=== PATIENT | female | born 1995 | race African-American/Black ===

== ENCOUNTER 2017-02-16 16:52 | Emergency (ER) | payer SELFPAY ==
--- NOTE | 2017-02-16 18:02 | ER Document Report ---
ED Medical Screen (RME) - General Chief Complaint: Chest Pain Stated Complaint: CHEST PAIN Time seen by provider: 18:01 Mode of Arrival: Ambulatory Information source: Patient TRAVEL OUTSIDE OF THE [place] IN LAST 30 DAYS: No - HPI Patient complains to provider of: chest pain Onset: This afternoon Onset/Duration: Sudden Quality of pain: Achy Severity: Moderate Pain Level: 3 Associated Symptoms: Chest pain Exacerbated by: Deep breathing Relieved by: Denies Similar symptoms previously: No Recently seen / treated by doctor: No Notes: 02/16/17 18:01 Patient is a 21-year-old female with no past medical history presenting to the emergency room complaining of left-sided chest pain that started around 2:30 this afternoon while sitting in her car, she reports a history of intermittent similar pain in the past that she's never sought medical attention for, pain is worse when she takes a deep breath, although she does not feel short of breath, she denies being a smoker, does not take control, no recent long distance travel or periods of immobilization and denies - Related Data Allergies/Adverse Reactions: No Known Allergies Allergy (Verified 02/16/17 17:09) Home Medications: Current Home Medications No Home Medications 02/16/17 [History] Past Medical History - Past Medical History Cardiac Medical History: Reports: Hx Hypertension Denies: Hx Coronary Artery Disease Renal/ Medical History: Denies: Hx Peritoneal Dialysis - Immunizations Immunizations up to date: No Hx Diphtheria, Pertussis, Tetanus Vaccination: No Physical Exam - Vital signs Vitals: Temp Pulse Resp BP Pulse Ox 98.5 F 92 16 144/81 H 100 02/16/17 17:09 02/16/17 17:09 02/16/17 17:09 02/16/17 17:09 02/16/17 17:09 Course - Vital Signs Vital signs: Temp Pulse Resp BP Pulse Ox 98.5 F 92 16 144/81 H 100 02/16/17 17:09 02/16/17 17:09 02/16/17 17:09 02/16/17 17:09 02/16/17 17:09
[2017-02-16 18:34] LABS: ABSOLUTE EOSINOPHILS # (AUTO) 0.1 10^3/uL (0.0-0.6); ABSOLUTE LYMPHOCYTES (AUTO) 2.7 10^3/uL (0.5-4.7); ABSOLUTE MONOCYTES (AUTO) 0.8 10^3/uL (0.1-1.4); ABSOLUTE NEUT (AUTO) 5.6 10^3/uL (1.7-8.2); BASOPHILS % (AUTO) 0.5 % (0-2); EOSINOPHILS % (AUTO) 1.3 % (0-6); HEMOGLOBIN 11.3 g/dL (12.0-15.5); HGB HCT DIFFERENCE -1.1; LYMPHOCYTES % (AUTO) 29.3 % (13-45); MEAN CORPUSCULAR HEMOGLOBIN 23.4 pg (27.0-33.4); MEAN CORPUSCULAR HGB CONC 32.2 g/dL (32.0-36.0); MEAN CORPUSCULAR VOLUME 73 fl (80-97); MONOCYTES % (AUTO) 8.3 % (3-13); RED BLOOD COUNT 4.81 10^6/uL (3.72-5.28); RED CELL DISTRIBUTION WIDTH 15.3 % (11.5-14.0); SEGMENTED NEUTROPHILS % (AUTO) 60.6 % (42-78); WHITE BLOOD COUNT 9.3 10^3/uL (4.0-10.5)
[2017-02-16 18:36] LABS: APPEARANCE,URINE SLIGHTLY-CLOUDY; BILIRUBIN,URINE NEGATIVE (NEGATIVE); GLUCOSE, URINE NEGATIVE (NEGATIVE); KETONES,URINE NEGATIVE (NEGATIVE); LEUKOCYTE ESTERASE,URINE NEGATIVE (NEGATIVE); NITRITE,URINE NEGATIVE (NEGATIVE); PROTEIN,URINE NEGATIVE (NEGATIVE); URINE SPECIFIC GRAVITY 1.027; UROBILINOGEN,URINE NEGATIVE mg/dL (<2.0)
[2017-02-16 18:59] LABS: ALANINE AMINOTRANSFERASE 24 U/L (9-52); ALBUMIN 3.9 g/dL (3.5-5.0); ALKALINE PHOSPHATASE 63 U/L (38-126); ANION GAP 12 (5-19); ASPARTATE AMINO TRANSFERASE 12 U/L (14-36); BILIRUBIN,DIRECT 0.1 mg/dL (0.0-0.4); BILIRUBIN,TOTAL 0.2 mg/dL (0.2-1.3); BLOOD UREA NITROGEN 8 mg/dL (7-20); CALCIUM 9.6 mg/dL (8.4-10.2); CARBON DIOXIDE 28 mmol/L (22-30); CHLORIDE 101 mmol/L (98-107); CREATINE KINASE 70 U/L (30-135); CREATININE RESULT 0.69 mg/dL (0.52-1.25); GLUCOSE 97 mg/dL (75-110); SODIUM 141.3 mmol/L (137-145); TOTAL PROTEIN 7.4 g/dL (6.3-8.2)
--- NOTE | 2017-02-16 19:03 | EKG REPORT ---
SEVERITY:- BORDERLINE ECG - SINUS RHYTHM BORDERLINE T ABNORMALITIES, INFERIOR LEADS : Confirmed by: Irvin Gould MD 16-Feb-2017 19:01:58
[2017-02-16 19:12] LABS: CREATINE KINASE MB < 0.22 ng/mL (<4.55); TROPONIN I < 0.012 ng/mL
--- NOTE | 2017-02-16 19:28 | ER Document Report ---
ED General - General Chief Complaint: Chest Pain Stated Complaint: CHEST PAIN Time seen by provider: 19:26 Mode of Arrival: Ambulatory Notes: Patient is a 21-year-old female that comes emergency department for chief complaint of pain in the mid left side of her chest that radiates around to her left armpit, symptoms started about 1431 she was sitting in a car she started to notice it, she states she can feel intermittently, she states she has had this on and off for a few months. Pain is worse with taking a deep breath or changing from lying to sitting where she can feel a sharp pain. She denies shortness of breath, cough, injury. She denies any recent travel, surgery, lower extremity swelling, she denies smoking, she denies oral contraceptive or any medications. She denies any medical history otherwise. She states she is somewhat stressed because she is finishing a certification program and is not sleeping well. TRAVEL OUTSIDE OF THE [place] IN LAST 30 DAYS: No - Related Data Allergies/Adverse Reactions: No Known Allergies Allergy (Verified 02/16/17 17:09) Past Medical History - General Information source: Patient - Social History Smoking Status: Never Smoker Chew tobacco use (# tins/day): No Frequency of alcohol use: Rare Drug Abuse: None Lives with: Family Family History: DM, Hypertension, Malignancy. denies: Thyroid Disfunction Patient has suicidal ideation: No Patient has homicidal ideation: No - Past Medical History Cardiac Medical History: Reports: Hx Hypertension Denies: Hx Coronary Artery Disease Renal/ Medical History: Denies: Hx Peritoneal Dialysis Surgical Hx: Negative - Immunizations Immunizations up to date: No Hx Diphtheria, Pertussis, Tetanus Vaccination: No Review of Systems - Review of Systems Constitutional: No symptoms reported EENT: No symptoms reported Cardiovascular: See HPI Respiratory: See HPI Gastrointestinal: No symptoms reported Genitourinary: No symptoms reported Female Genitourinary: No symptoms reported Musculoskeletal: See HPI Skin: No symptoms reported Hematologic/Lymphatic: No symptoms reported Neurological/Psychological: No symptoms reported Physical Exam - Vital signs Vitals: Temp Pulse Resp BP Pulse Ox 98.5 F 92 16 144/81 H 100 02/16/17 17:09 02/16/17 17:09 02/16/17 17:09 02/16/17 17:09 02/16/17 17:09 Interpretation: Normal - General General appearance: Appears well In distress: None - HEENT Head: Normocephalic, Atraumatic Eyes: Normal Conjunctiva: Normal Extraocular movements intact: Yes Eyelashes: Normal Pupils: PERRL Nasal: Normal Mouth/Lips: Normal Mucous membranes: Normal Pharynx: Normal Neck: Normal - Respiratory Respiratory status: No respiratory distress Chest status: Tender - There is tenderness in the left anterior upper chest wall at approximately rib 2-3 which is reproducible, otherwise completely unremarkable examination Breath sounds: Normal. No: Decreased air movement Chest palpation: Normal - Cardiovascular Rhythm: Regular Heart sounds: Normal auscultation Murmur: No - Abdominal Inspection: Normal Distension: No distension Bowel sounds: Normal Tenderness: Nontender. No: Tender, Guarding Organomegaly: No organomegaly - Back Back: Normal, Nontender. No: Tender - Extremities General upper extremity: Normal inspection, Nontender, Normal color, Normal ROM , Normal temperature General lower extremity: Normal inspection, Nontender, Normal color, Normal ROM , Normal temperature, Normal weight bearing. No: Simón's sign - Neurological Neuro grossly intact: Yes Cognition: Normal Orientation: AAOx4 [place] Coma Scale Eye Opening: Spontaneous [place] Coma Scale Verbal: Oriented [place] Coma Scale Motor: Obeys Commands [place] Coma Scale Total: 15 Speech: Normal Motor strength normal: LUE, RUE, LLE, RLE Sensory: Normal - Psychological Associated symptoms: Normal affect, Normal mood - Skin Skin Temperature: Warm Skin Moisture: Dry Skin Color: Normal Course - Re-evaluation Re-evalutation: On examination patient is resting notably, smiling, conversational, she winces when she gets up from a lying position to a sitting position, she has a palpable tenderness over the left upper chest wall, she also complains of feeling tenderness when taking a deep breath. Otherwise she denies shortness of breath, pain. Patient states that actually at the moment she does not feel any symptoms unless she moves them that way or takes a deep breath. EKG compared to prior, has slight T-wave inversion in lead 2 inferiorly but no consecutive changes, no acute ischemic abnormalities, no other abnormalities noted. Chest x-ray unremarkable including no pneumothorax, effusion, or other abnormalities. CBC, chemistry, cardiac enzymes reviewed and are unremarkable. Patient is young and has no risk factors for either ACS or pulmonary embolism. Suspect chest wall pain versus pleurisy based on examination and symptoms. Treating with anti-inflammatory. Patient declines any medications at this time , requests prescription which was provided. She requests a work note, states she is ready to leave. Discussed follow-up with primary care, discussed return precautions in detail, patient states understanding and agreement. - Vital Signs Vital signs: Temp Pulse Resp BP Pulse Ox 98.5 F 78 18 133/67 H 100 02/16/17 17:09 02/16/17 19:00 02/16/17 19:00 02/16/17 19:00 02/16/17 17:09 - Laboratory Result Diagrams: 02/16/17 18:05 02/16/17 18:05 Laboratory results interpreted by me: 02/16/17 02/16/17 18:05 18:05 Hgb 11.3 L Hct 35.0 L MCV 73 L MCH 23.4 L RDW 15.3 H Plt Count 547 H AST 12 L Discharge - Discharge Clinical Impression: Chest pain Qualifiers: Chest pain type: unspecified Qualified Code(s): R07.9 - Chest pain, unspecified Condition: Stable Disposition: HOME, SELF-CARE Additional Instructions: Your workup does not show any acute abnormalities or concerning findings. Examination symptoms are suggestive of pleurisy, take the naproxen anti- inflammatory as prescribed, drink plenty of fluids and rest. Follow-up with primary care for additional management. Return to emergency department for any concerning symptoms, see additional details listed below. Pleurisy Your chest pain has been diagnosed as pleuritis (pleurisy). This is an inflammation of the surface of the lung tissue. It can be caused by a virus or , occasionally, old scar tissue. It is painful but, for the most part, not a serious problem. This pain is usually made worse by deep breathing, coughing, or sudden movements of the upper body or arms. The treatment is relief of symptoms. It includes rest, antiinflammatory medication, and pain medicine. Resolution of the pain is usually rapid once antiinflammatory medication is started. Warning signs of a more serious problem include: a fever, shortness of breath, pain that radiates to your jaw, shoulders or arms, or coughing up bloody sputum. If any of these symptoms occur, call the physician at once. Prescriptions: Naproxen 500 mg PO BID #20 tablet Forms: Return to Work Referrals: RONA ROCHA MD [Primary Care Provider] - Follow up as needed
[2017-02-16 21:01] VITALS: BP 136/74
== END 2017-02-16 21:00 | disposition home or self-care (01) ==
LOC: ER 16:52
DX: R07.9 Chest pain, unspecified (principal); I10 Essential (primary) hypertension
CPT/HCPCS: 36415; 71020; 80053; 81001; 82550; 82553; 84484; 84703; 85025; 93005; 93010; 99285

== ENCOUNTER 2017-04-03 07:21 | Emergency (ER) | payer OTHER ==
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
[2017-04-03 09:04] LABS: ABSOLUTE BASOPHILS # (AUTO) 0.1 10^3/uL (0.0-0.2); ABSOLUTE EOSINOPHILS # (AUTO) 0.1 10^3/uL (0.0-0.6); ABSOLUTE MONOCYTES (AUTO) 0.6 10^3/uL (0.1-1.4); ABSOLUTE NEUT (AUTO) 5.2 10^3/uL (1.7-8.2); BASOPHILS % (AUTO) 0.6 % (0-2); EOSINOPHILS % (AUTO) 1.7 % (0-6); HEMATOCRIT 35.5 % (36.0-47.0); HEMOGLOBIN 10.9 g/dL (12.0-15.5); HGB HCT DIFFERENCE -2.8; LYMPHOCYTES % (AUTO) 25.5 % (13-45); MEAN CORPUSCULAR HEMOGLOBIN 22.9 pg (27.0-33.4); MEAN CORPUSCULAR HGB CONC 30.8 g/dL (32.0-36.0); MEAN CORPUSCULAR VOLUME 74 fl (80-97); RED BLOOD COUNT 4.78 10^6/uL (3.72-5.28); RED CELL DISTRIBUTION WIDTH 15.3 % (11.5-14.0); SEGMENTED NEUTROPHILS % (AUTO) 65.2 % (42-78)
[2017-04-03 09:22] LABS: ALANINE AMINOTRANSFERASE 20 U/L (9-52); ALBUMIN 3.9 g/dL (3.5-5.0); ALKALINE PHOSPHATASE 67 U/L (38-126); ANION GAP 10 (5-19); ASPARTATE AMINO TRANSFERASE 11 U/L (14-36); BILIRUBIN,DIRECT 0.3 mg/dL (0.0-0.4); BILIRUBIN,TOTAL 0.4 mg/dL (0.2-1.3); BLOOD UREA NITROGEN 7 mg/dL (7-20); CALCIUM 9.2 mg/dL (8.4-10.2); CARBON DIOXIDE 26 mmol/L (22-30); CHLORIDE 104 mmol/L (98-107); CREATININE RESULT 0.62 mg/dL (0.52-1.25); GLUCOSE 90 mg/dL (75-110); POTASSIUM 4.2 mmol/L (3.6-5.0); TOTAL PROTEIN 7.6 g/dL (6.3-8.2)
[2017-04-03] MEDS ORDERED: ACETAMINOPHEN 325 MG TABLET PO ONE (09:40)
[2017-04-03] MEDS ORDERED: FAMOTIDINE 20 MG TABLET PO ONE (09:40)
[2017-04-03] MEDS ORDERED: IBUPROFEN 800 MG TABLET PO ONE (09:40)
[2017-04-03] MEDS ORDERED: LANSOPRAZOLE 30 MG TAB.RAP.DR PO ONE (09:40)
[2017-04-03 09:49] LABS: APPEARANCE,URINE SLIGHTLY-CLOUDY; BILIRUBIN,URINE NEGATIVE (NEGATIVE); GLUCOSE, URINE NEGATIVE (NEGATIVE); KETONES,URINE NEGATIVE (NEGATIVE); LEUKOCYTE ESTERASE,URINE NEGATIVE (NEGATIVE); NITRITE,URINE NEGATIVE (NEGATIVE); PROTEIN,URINE 100 mg/dL (NEGATIVE); URINE SPECIFIC GRAVITY 1.028; UROBILINOGEN,URINE NEGATIVE mg/dL (<2.0)
[2017-04-03 10:59] VITALS: BP 147/82
== END 2017-04-03 10:58 | disposition home or self-care (01) ==
LOC: ER 07:21
DX: K29.00 Acute gastritis without bleeding (principal); R10.13 Epigastric pain; R10.2 Pelvic and perineal pain; M54.5 Low back pain; G89.29 Other chronic pain; V49.9XXS Car occupant (driver) (passenger) injured in unspecified traffic accident, sequela; I10 Essential (primary) hypertension
CPT/HCPCS: 36415; 80053; 81001; 84703; 85025; 87086; 87088; 87186; 99284

== ENCOUNTER 2017-04-12 22:13 | Emergency (ER) | payer OTHER ==
[2017-04-12 23:38] VITALS: BP 138/88
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
== END 2017-04-13 00:11 | disposition home or self-care (01) ==
LOC: ER 22:13
DX: M54.6 Pain in thoracic spine (principal); R51 Headache; V89.2XXA Person injured in unspecified motor-vehicle accident, traffic, initial encounter; I10 Essential (primary) hypertension
CPT/HCPCS: 99283

== ENCOUNTER 2017-04-18 01:33 | Emergency (ER) | payer OTHER ==
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
[2017-04-18] MEDS ORDERED: KETOROLAC TROMETHAMINE 60 MG/2 ML SDV IM ONE (07:00)
[2017-04-18] MEDS ORDERED: DEXAMETHASONE SOD PHOS INJ 10 MG/1 ML VIAL IM ONE (07:00)
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
[2017-04-18 07:14] VITALS: BP 156/64
== END 2017-04-18 07:11 | disposition home or self-care (01) ==
LOC: ER 01:33
DX: M54.5 Low back pain (principal); M79.1 Myalgia; V89.2XXA Person injured in unspecified motor-vehicle accident, traffic, initial encounter; I10 Essential (primary) hypertension
CPT/HCPCS: 72050; 72110; 99283

== ENCOUNTER 2017-05-10 18:29 | Emergency (ER) | payer OTHER ==
[2017-05-10] MEDS ORDERED: ONDANSETRON 4 MG TAB.RAPDIS PO ONE (19:38)
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
[2017-05-10 19:57] VITALS: BP 130/83
== END 2017-05-10 19:57 | disposition home or self-care (01) ==
LOC: ER 18:29
DX: J04.0 Acute laryngitis (principal); R05 Cough; R11.2 Nausea with vomiting, unspecified; R19.7 Diarrhea, unspecified
CPT/HCPCS: 99283; S0119

== ENCOUNTER 2017-07-02 08:07 | Emergency (ER) | payer SELFPAY ==
[2017-07-02 08:18] VITALS: BP 173/86
--- NOTE | 2017-07-02 09:33 | ER Document Report ---
HPI - HPI Pain Level: 4 Notes: Patient is a 21-year-old female who presents the ED complaining of loss of voice , nasal congestion/discharge, and an occasional cough 1-2 days. Patient states that she talks on the phones and is in need of a work note. She still eating and drinking without any difficulties. She has not been using any over- the-counter meds for symptoms. Her conditions have not been worsening. Patient states that she has no pain. She denies any smoking or illicit drug use. Denies any past medical history. Denies any drug allergies. Denies any headache, fever, neck pain, sore throat, chest pain, palpitations, syncope, shortness of breath, wheeze, dyspnea, abdominal pain, nausea/vomiting/diarrhea, urinary retention, dysuria, hematuria, or rash. - ROS Notes: REVIEW OF SYSTEMS: CONSTITUTIONAL : Denies fever, chills, or sweats. Denies recent illness. EENT: see hpi. no eye complaints CARDIOVASCULAR: Denies chest pain. Denies palpitations or racing or irregular heart beat. Denies ankle edema. RESPIRATORY: see hpi. Denies shortness of breath, difficulty breathing, or wheezing. GASTROINTESTINAL: Denies abdominal pain or distention. Denies nausea, vomiting , or diarrhea. Denies blood in vomitus, stools, or per rectum. Denies black, tarry stools. Denies constipation. GENITOURINARY: Denies difficulty urinating, painful urination, burning, frequency, blood in urine, or discharge. MUSCULOSKELETAL: Denies back or neck pain or stiffness. Denies joint pain or swelling. SKIN: Denies rash, lesions or sores. NEUROLOGICAL: Denies confusion or altered mental status. Denies passing out or loss of consciousness. Denies dizziness or lightheadedness. Denies headache. Denies weakness or paralysis or loss of use of either side. Denies problems with gait or speech. Denies sensory loss, numbness, or tingling. ALL OTHER SYSTEMS REVIEWED AND NEGATIVE. Dictation was performed using [employer] voice recognition software - REPRODUCTIVE LMP: 06-07-17 Reproductive: DENIES: : - DERM Skin Color: Normal Past Medical History - Social History Smoking Status: Never Smoker Family History: DM, Hypertension, Malignancy Patient has suicidal ideation: No Patient has homicidal ideation: No - Past Medical History Cardiac Medical History: Reports: Hx Hypertension Renal/ Medical History: Denies: Hx Peritoneal Dialysis - Immunizations Immunizations up to date: No Hx Diphtheria, Pertussis, Tetanus Vaccination: No Vertical Provider Document - CONSTITUTIONAL Agree With Documented VS: Yes Notes: PHYSICAL EXAMINATION: GENERAL: Well-appearing, well-nourished and in no acute distress. HEAD: Atraumatic, normocephalic. EYES: Pupils equal round and reactive to light, extraocular movements intact, sclera anicteric, conjunctiva are normal. ENT: EAC clear b/l. TM's intact b/l without erythema, fluid, or perforation. Nares patent and without discharge. oropharynx clear without exudates. No tonsilar hypertrophy or erythema. Moist mucous membranes. No sinus tenderness. No palatine shift. uvula midline. No tongue protrusion. No facial swelling. NECK: Normal range of motion, supple without lymphadenopathy. No rigidity/ meningismus. LUNGS: Breath sounds clear to auscultation bilaterally and equal. No wheezes rales or rhonchi. HEART: Regular rate and rhythm without murmurs, rubs, gallops. Extremities: No cyanosis, clubbing, or edema b/l. Peripheral pulses 2+. Capillary refill less than 3 seconds. NEUROLOGICAL: Cranial nerves grossly intact. Normal speech, normal gait. Normal sensory, motor exams PSYCH: Normal mood, normal affect. SKIN: Warm, Dry, normal turgor, no rashes or lesions noted. - INFECTION CONTROL TRAVEL OUTSIDE OF THE [place] IN LAST 30 DAYS: No - RESPIRATORY O2 Sat by Pulse Oximetry: 99 Course - Re-evaluation Re-evalutation: 07/02/17 09:34 Patient is an afebrile, well-hydrated, 21-year-old female who presents to the ED with an acute URI/laryngitis, suspect viral at this time. Vitals are stable. PE otherwise unremarkable. Low suspicion for any meningitis, sepsis, peritonsillar/pharyngeal abscess, respiratory compromise, Kenji's, or other emergent systemic condition at this time. Patient is aware this condition can change from initial presentation and she needs to monitor symptoms closely. I will send her home with a Rx for prednisone taper. Conservative measures otherwise for symptoms. Recheck with your PCM this week. Work note provided. Return to the ED with any worsening/concerning symptoms otherwise as reviewed in discharge. Patient is in agreement. - Vital Signs Vital signs: Temp Pulse Resp BP Pulse Ox 99 F 106 H 16 173/86 H 99 07/02/17 08:12 07/02/17 08:12 07/02/17 08:12 07/02/17 08:12 07/02/17 08:12 Discharge - Discharge Clinical Impression: Laryngitis URI (upper respiratory infection) Qualifiers: URI type: unspecified URI Qualified Code(s): J06.9 - Acute upper respiratory infection, unspecified Condition: Stable Disposition: HOME, SELF-CARE Instructions: Corticosteroid Medication ([facility]), Laryngitis ([facility]), Upper Respiratory Illness ([facility]), Viral Syndrome ([facility]) Additional Instructions: Maintain adequate fluid intake Take meds as directed tylenol/ibuprofen as needed over the counter cold medication as needed for symptoms Humidified air may help F/u: with your PCM in 2-3 days for a recheck Return to the ED with any fever, worsening pain, chest pain, palpitations, syncope, worsening CLARK, neck pain/stiffness, shortness of breath, wheezing, drooling, trouble swallowing/breathing, abdominal pain, n/v/d, rash, or worsening/concerning symptoms otherwise. Prescriptions: Prednisone [Deltasone 10 mg Tablet] 10 mg PO ASDIR PRN #21 tablet PRN Reason: Forms: Elevated Blood Pressure, Return to Work Referrals: [facility] [Provider Group] - Follow up as needed [facility] [Provider Group] - Follow up as needed
== END 2017-07-02 09:47 | disposition home or self-care (01) ==
LOC: ER 08:07
DX: J04.0 Acute laryngitis (principal); J06.9 Acute upper respiratory infection, unspecified; I10 Essential (primary) hypertension
CPT/HCPCS: 99283

== ENCOUNTER 2018-01-03 00:35 | Emergency (ER) | payer MEDICAID, OTHER ==
[2018-01-03] MEDS ORDERED: NORMAL SALINE 1000 ML 1,000 ML IV PRN (03:02)
[2018-01-03] MEDS ORDERED: KETOROLAC TROMETHAMINE INJ/PF 30 MG/1 ML SDV IV ONE (03:02)
--- NOTE | 2018-01-03 03:02 | ER Document Report ---
ED General - General Chief Complaint: Shortness Of Breath Stated Complaint: TROUBLE BREATHING Time Seen by Provider: 01/03/18 02:26 Notes: Patient is a 22-year-old female who presents emergency department complaining of body aches. Patient states that she was in [place] on Tuesday and diagnosed with pneumonia and sent home on Levaquin. Patient states that she saw Dr. Rocha her primary care doctor on Tuesday and told to continue taking Levaquin. Patient states she comes today with complaint of body aches. She otherwise denies any shortness of breath, dyspnea on exertion, chest pain, nausea or vomiting. Patient did have a recent negative test. Otherwise healthy female. Denies any fevers or chills. TRAVEL OUTSIDE OF THE [place] IN LAST 30 DAYS: No - Related Data Allergies/Adverse Reactions: No Known Allergies Allergy (Verified 07/02/17 08:18) Past Medical History - Social History Smoking Status: Never Smoker Family History: DM, Hypertension, Malignancy Patient has suicidal ideation: No Patient has homicidal ideation: No - Past Medical History Cardiac Medical History: Reports: Hx Hypertension Renal/ Medical History: Denies: Hx Peritoneal Dialysis - Immunizations Immunizations up to date: No Hx Diphtheria, Pertussis, Tetanus Vaccination: No Review of Systems - Review of Systems Constitutional: No symptoms reported, Weakness. denies: Chills, Fever EENT: No symptoms reported Cardiovascular: No symptoms reported Respiratory: See HPI Gastrointestinal: No symptoms reported Musculoskeletal: See HPI -: Yes All other systems reviewed and negative Physical Exam - Vital signs Vitals: Temp Pulse BP Pulse Ox 98.8 F 112 H 153/99 H 98 01/03/18 00:44 01/03/18 00:44 01/03/18 00:44 01/03/18 00:44 - Notes Notes: PHYSICAL EXAM GENERAL: Alert, interacts well. HEAD: Normocephalic, atraumatic. EYES: Pupils equal, round, and reactive to light. Extraocular movements intact. ENT: Oral mucosa moist, tongue midline. NECK: Full range of motion. Supple. Trachea midline. LUNGS: Crackles noted at the right base clear to auscultation bilaterally, no wheezes, rales, or rhonchi. No respiratory distress. HEART: Regular rate and rhythm. No murmurs, gallops, or rubs. ABDOMEN: Soft, nondistended, nontender. No guarding, rebound, or rigidity.. Bowel sounds present in all 4 quadrants. EXTREMITIES: Moves all 4 extremities spontaneously. No edema, radial and dorsalis pedis pulses 2/4 bilaterally. No cyanosis. NEUROLOGICAL: Alert and oriented x4. Normal speech. PSYCH: Normal affect, normal mood. SKIN: Warm, dry, normal turgor. No rashes or lesions noted. Course - Re-evaluation Re-evalutation: 01/03/18 05:17 Patient is a 22-year-old female is hemodynamically stable, no acute distress and afebrile. Presentation of the right lobar pneumonia. Patient without evidence of sepsis, Sirs. Feels better after pain medication and IV fluids. Discussed with her to continue taking her antibiotics as directed and discussed strict return precautions. - Vital Signs Vital signs: Temp Pulse Resp BP Pulse Ox 97.6 F 94 20 139/72 H 98 01/03/18 06:16 01/03/18 06:16 01/03/18 06:16 01/03/18 06:16 01/03/18 06:16 - Laboratory Result Diagrams: 01/03/18 03:40 01/03/18 03:40 Laboratory results interpreted by me: 01/03/18 01/03/18 03:40 03:40 WBC 12.2 H Hgb 11.8 L MCV 71 L MCH 22.5 L MCHC 31.8 L RDW 15.3 H Plt Count 509 H Seg Neutrophils % 78.2 H Lymphocytes % 10.2 L Absolute Neutrophils 9.6 H Ur Leukocyte Esterase TRACE H - Diagnostic Test Radiology reviewed: Image reviewed, Reports reviewed Discharge - Discharge Clinical Impression: Pneumonia Qualifiers: Pneumonia type: due to unspecified organism Laterality: right Lung location: lower lobe of lung Qualified Code(s): J18.1 - Lobar pneumonia, unspecified organism Condition: Good Disposition: HOME, SELF-CARE Instructions: Pneumonia ([facility]) Additional Instructions: Please continue to take your antibiotic as directed. Please take your pain medication as directed. Forms: Elevated Blood Pressure Referrals: RONA ROCHA MD [Primary Care Provider] - Follow up tomorrow
[2018-01-03 03:54] LABS: ABSOLUTE BASOPHILS # (AUTO) 0.1 10^3/uL (0.0-0.2); ABSOLUTE EOSINOPHILS # (AUTO) 0.3 10^3/uL (0.0-0.6); ABSOLUTE LYMPHOCYTES (AUTO) 1.3 10^3/uL (0.5-4.7); ABSOLUTE NEUT (AUTO) 9.6 10^3/uL (1.7-8.2); BASOPHILS % (AUTO) 0.5 % (0-2); EOSINOPHILS % (AUTO) 2.7 % (0-6); HEMOGLOBIN 11.8 g/dL (12.0-15.5); LYMPHOCYTES % (AUTO) 10.2 % (13-45); MEAN CORPUSCULAR HEMOGLOBIN 22.5 pg (27.0-33.4); MEAN CORPUSCULAR HGB CONC 31.8 g/dL (32.0-36.0); MEAN CORPUSCULAR VOLUME 71 fl (80-97); MONOCYTES % (AUTO) 8.4 % (3-13); PLATELET COUNT 509 10^3/uL (150-450); RED BLOOD COUNT 5.23 10^6/uL (3.72-5.28); RED CELL DISTRIBUTION WIDTH 15.3 % (11.5-14.0); SEGMENTED NEUTROPHILS % (AUTO) 78.2 % (42-78); TOTAL CELLS COUNTED % (AUTO) 100 %; WHITE BLOOD COUNT 12.2 10^3/uL (4.0-10.5)
[2018-01-03 04:00] LABS: APPEARANCE,URINE SLIGHTLY-CLOUDY; BILIRUBIN,URINE NEGATIVE (NEGATIVE); COLOR,URINE YELLOW; GLUCOSE, URINE NEGATIVE (NEGATIVE); KETONES,URINE NEGATIVE (NEGATIVE); LEUKOCYTE ESTERASE,URINE TRACE (NEGATIVE); NITRITE,URINE NEGATIVE (NEGATIVE); PROTEIN,URINE NEGATIVE (NEGATIVE); URINE SPECIFIC GRAVITY 1.014; UROBILINOGEN,URINE NEGATIVE mg/dL (<2.0)
[2018-01-03] MEDS ORDERED: ALBUTEROL SULFATE 0.083% NEB 2.5 MG/3 ML AMPUL NEB ONE (04:03)
--- NOTE | 2018-01-03 04:12 | RADIOLOGY REPORT (SQ) ---
EXAM DESCRIPTION: CHEST PA/LAT CLINICAL HISTORY: cough, shortness of breath and chest pain COMPARISON: 02/16/2017 FINDINGS: Frontal and lateral views of the chest. The cardiomediastinal silhouette has normal size and contour. Right lower lobe airspace opacity. No pneumothorax or pleural effusion. No displaced rib fractures identified. Upper abdominal soft tissues are unremarkable. IMPRESSION: 1. Right basilar airspace opacity concerning for pneumonia.
[2018-01-03 04:16] LABS: ANION GAP 14 (5-19); BLOOD UREA NITROGEN 9 mg/dL (7-20); CALCIUM 9.6 mg/dL (8.4-10.2); CARBON DIOXIDE 24 mmol/L (22-30); CHLORIDE 103 mmol/L (98-107); GLUCOSE 98 mg/dL (75-110); POTASSIUM 4.1 mmol/L (3.6-5.0); SODIUM 140.5 mmol/L (137-145)
[2018-01-03] MEDS ORDERED: ONDANSETRON 4 MG TAB.RAPDIS PO ONE (05:11)
[2018-01-03] MEDS ORDERED: HYDROCODONE/ACETAMINOPHEN 5-325 MG (6 TAB/ER DISP) PO PRN (05:16)
[2018-01-03] MEDS ORDERED: ONDANSETRON ODT 4 MG TAB (6 TAB/ER DISP) PO PRN (05:16)
[2018-01-03 06:17] VITALS: BP 139/72
== END 2018-01-03 06:17 | disposition home or self-care (01) ==
LOC: ER 00:35
DX: J18.1 Lobar pneumonia, unspecified organism (principal); I10 Essential (primary) hypertension
CPT/HCPCS: 94640; 99285; 96361; 96374; 36415; 85025; 80048; 81001; 71046; S0119; J1885; J7030

== ENCOUNTER 2018-01-03 21:15 | Inpatient (IN) | payer BC ==
--- NOTE | 2018-01-03 21:55 | ER Document Report ---
ED General - General Chief Complaint: Breathing Difficulty Stated Complaint: DIFFICULTY BREATHING Time Seen by Provider: 01/03/18 21:46 Mode of Arrival: Ambulatory Information source: Patient Notes: 22-year-old female presents with complaints of chest pain shortness of breath. Patient notes a week ago she traveled from [place], started having cough shortness of breath on Tuesday and was seen at [facility], patient notes that she was seen and diagnosed with pneumonia, patient was started on levofloxacin, she was seen here last night as well, at that time the patient was noted to have pneumonia again and was given pain medication. Patient denies any fevers or chills admits shortness of breath difficulty breathing, patient does note some productivity to her cough TRAVEL OUTSIDE OF THE [place] IN LAST 30 DAYS: No - HPI Onset: Last week Onset/Duration: Persistent Quality of pain: Sharp Severity: Mild Pain Level: 1 Associated symptoms: Body/muscle aches, Productive cough, Shortness of breath Exacerbated by: Walking, Coughing Relieved by: Denies Similar symptoms previously: Yes Recently seen / treated by doctor: Yes - Related Data Allergies/Adverse Reactions: No Known Allergies Allergy (Verified 07/02/17 08:18) Past Medical History - Social History Smoking Status: Never Smoker Cigarette use (# per day): No Chew tobacco use (# tins/day): No Smoking Education Provided: No Family History: DM, Hypertension, Malignancy - Past Medical History Cardiac Medical History: Reports: Hx Hypertension Renal/ Medical History: Denies: Hx Peritoneal Dialysis - Immunizations Immunizations up to date: No Hx Diphtheria, Pertussis, Tetanus Vaccination: No Review of Systems - Review of Systems Notes: REVIEW OF SYSTEMS: CONSTITUTIONAL : Denies fever, chills, or sweats. Denies recent illness. EENT: Denies eye, ear, throat, or mouth pain or symptoms. Denies nasal or sinus congestion or discharge. Denies throat, tongue, or mouth swelling or difficulty swallowing. CARDIOVASCULAR: Denies chest pain. Denies palpitations or racing or irregular heart beat. Denies ankle edema. RESPIRATORY: Admits to shortness of breath productivity to cough chest pain on inspiration GASTROINTESTINAL: Denies abdominal pain or distention. Denies nausea, vomiting , or diarrhea. Denies blood in vomitus, stools, or per rectum. Denies black, tarry stools. Denies constipation. GENITOURINARY: Denies difficulty urinating, painful urination, burning, frequency, blood in urine, or discharge. FEMALE GENITOURINARY: Denies vaginal bleeding, heavy or abnormal periods, irregular periods. Denies vaginal discharge or odor. MUSCULOSKELETAL: Denies back or neck pain or stiffness. Denies joint pain or swelling. SKIN: Denies rash, lesions or sores. HEMATOLOGIC : Denies easy bruising or bleeding. LYMPHATIC: Denies swollen, enlarged glands. NEUROLOGICAL: Denies confusion or altered mental status. Denies passing out or loss of consciousness. Denies dizziness or lightheadedness. Denies headache. Denies weakness or paralysis or loss of use of either side. Denies problems with gait or speech. Denies sensory loss, numbness, or tingling. Denies seizures. PSYCHIATRIC: Denies anxiety or stress. Denies depression, suicidal ideation, or homicidal ideation. ALL OTHER SYSTEMS REVIEWED AND NEGATIVE. PHYSICAL EXAMINATION: GENERAL: Well-appearing, well-nourished and in moderate respiratory distress HEAD: Atraumatic, normocephalic. EYES: Pupils equal round and reactive to light, extraocular movements intact, conjunctiva are normal. ENT: Nares patent, oropharynx clear without exudates. Moist mucous membranes. NECK: Normal range of motion, supple without lymphadenopathy LUNGS: Tachypnea crackles at the bases HEART: Tachycardia ABDOMEN: Soft, nontender, nondistended abdomen. No guarding, no rebound. No masses appreciated. Female : deferred Musculoskeletal: Normal range of motion, no pitting or edema. No cyanosis. NEUROLOGICAL: Cranial nerves grossly intact. Normal speech, normal gait. Normal sensory, motor exams PSYCH: Normal mood, normal affect. SKIN: Warm, Dry, normal turgor, no rashes or lesions noted. Dictation was performed using [employer] voice recognition software Physical Exam - Vital signs Vitals: Temp Pulse Resp BP Pulse Ox 98.8 F 110 H 34 H 145/75 H 100 01/03/18 21:18 01/03/18 21:18 01/03/18 21:18 01/03/18 21:18 01/03/18 21:18 Course - Re-evaluation Re-evalutation: 01/03/18 21:54 Patient overall appears tachycardic tachypneic initial vital signs note heart rate 125 satting 95% on room air, CTA is pending 01/03/18 22:46 CTA noted bilateral infiltrates no pulmonary emboli, patient will be started on azithromycin Rocephin I will admit her due to the level of tachypnea tachycardia and respiratory distress - Vital Signs Vital signs: Temp Pulse Resp BP Pulse Ox 99.6 F 125 H 18 154/96 H 95 01/03/18 21:40 01/03/18 21:40 01/03/18 21:40 01/03/18 21:40 01/03/18 21:40 - Diagnostic Test Radiology reviewed: Image reviewed - Bilateral infiltrate, Reports reviewed Critical Care Note - Critical Care Note Total time excluding time spent on procedures (mins): 34 Comments: 34 minutes of critical care time spent in direct contact evaluating and reevaluating the patient, treating symptoms, reviewing labs and studies and speaking with family and consultants excluding any procedures Discharge - Discharge Clinical Impression: Tachycardia Pneumonia Qualifiers: Pneumonia type: due to unspecified organism Laterality: bilateral Lung location : lower lobe of lung Qualified Code(s): J18.1 - Lobar pneumonia, unspecified organism Sepsis Qualifiers: Sepsis type: sepsis due to unspecified organism Qualified Code(s): A41.9 - Sepsis, unspecified organism Condition: Fair Disposition: ADMITTED OBSERVATION Admitting Provider: Hospitalist Unit Admitted: Telemetry Referrals: RONA ROCHA MD [Primary Care Provider] - Follow up as needed
--- NOTE | 2018-01-03 22:34 | RADIOLOGY REPORT (SQ) ---
EXAM DESCRIPTION: CTA CHEST COMPLETED DATE/TIME: 01/03/2018 10:15 pm REASON FOR STUDY: chest pain sob tachycardia COMPARISON: 01/03/2018 radiographs. TECHNIQUE: CT scan of the chest performed using helical scanning technique with dynamic intravenous contrast injection. Images reviewed with lung, soft tissue and bone windows. Reconstructed coronal and sagittal MPR images reviewed. Additional 3 dimensional post-processing performed to develop Maximal Intensity Projection images (AL P). All images stored on PACS. All CT scanners at this facility use dose modulation, iterative reconstruction, and/or weight based d osing when appropriate to reduce radiation dose to as low as reasonably achievable (ALARA). [facility]: Dose Right [facility]: CareDose [facility]: Dose Right [facility]: Teradose 4D [facility]: Jammin Java CONTRAST TYPE AND DOSE: contrast/concentration: Isovue 370.00 mg/ml; Total Contrast Delivered: 100.0 ml; Total Saline Delivered: 50.0 ml Contrast bolus adequate for pulmonary arteries and aorta. RENAL FUNCTION: None required. The patient is less than 50 years old. RADIATION DOSE: CT Rad equipment meets quality standard of care and radiation dose reduction techniq ues were employed. CTDIvol: 8.3 - 49.6 mGy. DLP: 1471 mGy-cm. . LIMITATIONS: Body habitus significantly limits as does motion artifact through the lung bases. FINDINGS: LUNGS AND PLEURA: Multifocal areas of airspace disease in the lungs. Most notable in the right middle lobe and right lower lobe but also seen in the right upper lobe and in the left lower lo be. No pleural effusion. AORTA AND GREAT VESSELS: No aneurysm. Contrast bolus not optimized for the aorta. HEART: Cardiac enlargement without evidence of pleural effusion. No significant coronary artery calci fications. PULMONARY ARTERIES: Clear as assessed. Limiting factors as above. HILAR AND MEDIASTINAL STRUCTURES: No identified masses or abnormal nodes. HARDWARE: None in the chest. UPPER ABDOMEN: No significant findings. Limited exam. THYROID AND OTHER SOFT TISSUES: No masses. No adenopathy. BONES: No acute or significant finding. 3D MIPS: Confirm above findings. OTHER: No other significant finding. IMPRESSION: 1. Bilateral probable pneumonic infiltrates with patchy areas of consolidation and airs pace disease right greater than left. 2. No evidence of pulmonary embolus. 3. Cardiomegaly. No gabriel ss aortic disease. COMMENT: Quality ID # [id number]: Final reports with documentation of one or more dose reduction techniques (e.g., Automated exposure control, adjustment of the mA and/or kV according to patient size, use of iterative reconstruction technique) TECHNICAL DOCUMENTATION: JOB ID: [id number] [employer]- All Rights Reserved Reading location - IP/workstation name: [email or web address]
[2018-01-03] MEDS ORDERED: CEFTRIAXONE 1 GM/D5W RTU 1 GM/50 ML RTUPB IV ONE ×2 (22:45→23:00)
[2018-01-03] MEDS ORDERED: OSELTAMIVIR PHOSPHATE 75 MG CAPSULE PO ONE (22:45)
[2018-01-03] MEDS ORDERED: AZITHROMYCIN INJ 500 MG VIAL IV ONE (22:45)
[2018-01-03] MEDS ORDERED: ALBUTEROL SULFATE 0.083% NEB 2.5 MG/3 ML AMPUL NEB PRN (22:53)
[2018-01-03] MEDS ORDERED: NORMAL SALINE 1000 ML 1,000 ML IV PRN ×3 (22:53→22:55)
[2018-01-03] MEDS ORDERED: PROMETHAZINE HCL INJ 25 MG/1 ML VIAL IV PRN (22:53)
[2018-01-03] MEDS ORDERED: ACETAMINOPHEN 325 MG TABLET PO PRN (22:53)
[2018-01-03] MEDS ORDERED: IPRATROPIUM/ALBUTEROL 0.5-2.5 MG/3 ML AMPUL NEB ONE (22:54)
[2018-01-03] MEDS ORDERED: NORMAL SALINE 1000 ML 1,000 ML IV ONE (22:55)
[2018-01-03] MEDS ORDERED: PREDNISONE 20 MG TABLET PO ONE (23:30)
[2018-01-03 23:36] LABS: ABSOLUTE EOSINOPHILS # (AUTO) 0.3 10^3/uL (0.0-0.6); ABSOLUTE LYMPHOCYTES (AUTO) 1.4 10^3/uL (0.5-4.7); ABSOLUTE MONOCYTES (AUTO) 1.4 10^3/uL (0.1-1.4); ABSOLUTE NEUT (AUTO) 9.3 10^3/uL (1.7-8.2); BASOPHILS % (AUTO) 0.3 % (0-2); EOSINOPHILS % (AUTO) 2.1 % (0-6); HEMATOCRIT 33.6 % (36.0-47.0); HEMOGLOBIN 10.5 g/dL (12.0-15.5); LYMPHOCYTES % (AUTO) 11.4 % (13-45); MEAN CORPUSCULAR HGB CONC 31.3 g/dL (32.0-36.0); MEAN CORPUSCULAR VOLUME 70 fl (80-97); PLATELET COUNT 503 10^3/uL (150-450); RED BLOOD COUNT 4.78 10^6/uL (3.72-5.28); RED CELL DISTRIBUTION WIDTH 15.1 % (11.5-14.0); SEGMENTED NEUTROPHILS % (AUTO) 75.2 % (42-78); TOTAL CELLS COUNTED % (AUTO) 100 %; WHITE BLOOD COUNT 12.4 10^3/uL (4.0-10.5)
[2018-01-03] MEDS ORDERED: LACTOBACILLUS ACIDOPHILUS 250 MG TAB PO ONE (23:45)
--- NOTE | 2018-01-03 23:48 | PDOC H&P ---
History of Present Illness Admission Date/PCP: RONA ROCHA Patient complains of: Worsening shortness of breath for the last few days. History of Present Illness: LEON SANHCEZ is a 22 year old morbidly obese female with no significant medical history was admitted with above-mentioned complaints. On 12/29/2017, the patient apparently started having intermittent fever, chills and worsening shortness of breath with productive cough of clear sputum. She denied any sick contacts but she said that she was recently in [place]. Three days later on Tuesday, she was seen in the ER in [place] and diagnosed with pneumonia. She was discharged on 2 different antibiotics. She followed with her PCP the following day who discontinued 1 of the antibiotics because it was making her vomit. She continued taking Levaquin ( possibly) according to ED physician's note. She also was using a rescue inhaler and nebulizer treatment every 4 hours with no improvement of her dyspnea so she decided to come back to the hospital for further management and treatment. She actually was here earlier today and was discharged from the ER on the same regimen. She denied any chest pain or leg swelling but complained of feeling nauseous, no vomiting or abdominal pain. She has been having diarrhea since she was started on antibiotics, about 5 BMs per day but she denied any urinary symptoms. She also said that she felt generally weak. In the ED, her temperature was 98.8, heart rate 110, respiratory rate 34, blood pressure 145/75 with oxygen saturation of 100% on room air. A CAT scan angiogram of the chest was done which showed multilobar pneumonia, no PE. She received 1 g Rocephin x1, 500 mg IV Zithromax x1 in addition to 75 mg Tamiflu 1. Past Medical History Pulmonary Medical History: Reports: Pneumonia Hematology: Reports: Anemia Past Surgical History Past Surgical History: Reports: None Social History Smoking Status: Never Smoker Frequency of Alcohol Use: Social - liquor once a week. Hx Recreational Drug Use: No - Advance Directive Resuscitation Status: Full Code Family History Family History: DM, Hypertension, Malignancy Parental Family History Reviewed: Yes Children Family History Reviewed: No Sibling(s) Family History Reviewed.: Yes Medication/Allergy Home Medications: Ibuprofen [Motrin 600 mg Tablet] 600 mg PO Q8HP PRN #20 tablet 04/03/17 Cyclobenzaprine HCl [Flexeril 10 mg Tablet] 10 mg PO TIDP PRN #15 tab 04/12/17 Benzonatate [Tessalon Perles 100 mg Capsule] 100 mg PO Q8HP PRN #20 capsule Ondansetron [Zofran Odt 4 mg Tablet] 1 - 2 tab PO Q4HP PRN #10 tab.rapdis Prednisone [Deltasone 10 mg Tablet] 10 mg PO ASDIR PRN #21 tablet 07/02/17 Allergies/Adverse Reactions: No Known Allergies Allergy (Verified 07/02/17 08:18) Review of Systems ROS unobtainable: Other - Pertinent positives and negatives as detailed in HPI. Physical Exam Vital Signs: Temp Pulse Resp BP Pulse Ox 99.6 F 125 H 18 154/96 H 95 01/03/18 21:40 01/03/18 21:40 01/03/18 21:40 01/03/18 21:40 01/03/18 21:40 Intake & Output 01/02/18 01/03/18 01/04/18 06:59 06:59 06:59 Weight 152.9 kg General appearance: PRESENT: no acute distress, well-developed, well-nourished Head exam: PRESENT: atraumatic, normocephalic Eye exam: PRESENT: conjunctiva pink, PERRLA. ABSENT: scleral icterus Mouth exam: PRESENT: moist Neck exam: PRESENT: full ROM. ABSENT: JVD Respiratory exam: PRESENT: decreased breath sounds. ABSENT: rales, rhonchi, wheezes Cardiovascular exam: PRESENT: +S1, +S2, tachycardia Pulses: PRESENT: normal dorsalis pedis pul GI/Abdominal exam: PRESENT: normal bowel sounds, soft. ABSENT: distended, rebound, rigid, tenderness Rectal exam: PRESENT: deferred Extremities exam: PRESENT: full ROM. ABSENT: pedal edema Neurological exam: PRESENT: alert, altered, awake. ABSENT: motor sensory deficit Results Laboratory Results: pending. Impressions: Chest/Abdomen CTA 01/03/18 21:46 IMPRESSION: 1. Bilateral probable pneumonic infiltrates with patchy areas of consolidation and airspace disease right greater than left. 2. No evidence of pulmonary embolus. 3. Cardiomegaly. No gross aortic disease. Assessment & Plan - Diagnosis (1) Sepsis Qualifiers: Sepsis type: sepsis due to unspecified organism Qualified Code(s): A41.9 - Sepsis, unspecified organism Is this a current diagnosis for this admission?: Yes Plan: Given tachycardia, reported fever and leucytosis (based on this AM labs) in the setting of bilateral pneumonias, however the patient does not look clinically septic. CTA chest reviewed. Will continue Rocephin, Zithromax and Tamiflu ( unable to obtain flu screen at this time) and follow-up blood cultures. (2) Bilateral pneumonia Qualifiers: Pneumonia type: due to unspecified organism Lung location: unspecified part of lung Qualified Code(s): J18.9 - Pneumonia, unspecified organism Is this a current diagnosis for this admission?: Yes Plan: Will resume treatment as mentioned above. Will also add scheduled duonebs and 40 mg prednisone daily. Will start lactobacillus while on antibiotics since diarrhea when she takes antibiotics. Of note, the patient does not have any history of asthma per her mother at bedside. (3) Sinus tachycardia Is this a current diagnosis for this admission?: Yes Plan: Secondary to #1 and 2. Management as above. (4) Dyspnea Is this a current diagnosis for this admission?: Yes Plan: In the setting of bilateral pneumonia. CAT scan angiogram of the chest was negative for PE. Will check VBG and continue management as above. (5) Elevated BP without diagnosis of hypertension Is this a current diagnosis for this admission?: Yes Plan: Will monitor for now and treat if needed. - Time Time Spent: 50 to 70 Minutes Anticipated discharge: Home - Inpatient Certification Based on my medical assessment, after consideration of the patient's comorbidities, presenting symptoms, or acuity I expect that the services needed warrant INPATIENT care.: Yes I certify that my determination is in accordance with my understanding of Medicare's requirements for reasonable and necessary INPATIENT services [42 CFR 412.3e].: Yes
[2018-01-03 23:54] LABS: ARTERIAL BLOOD BASE EXCESS 0.4 mmol/L; ARTERIAL BLOOD H2CO3 1.17 mmol/L (1.05-1.35); ARTERIAL BLOOD HCO3 24.8 mmol/L (20-26); ARTERIAL BLOOD O2 SATURATION 95.2 % (94-98); ARTERIAL BLOOD PH 7.42 (7.35-7.45); ARTERIAL BLOOD PO2 74.1 mmHg (80-100)
[2018-01-03 23:54] LABS: ALANINE AMINOTRANSFERASE 51 U/L (9-52); ALBUMIN 3.5 g/dL (3.5-5.0); ALKALINE PHOSPHATASE 80 U/L (38-126); ANION GAP 11 (5-19); ASPARTATE AMINO TRANSFERASE 23 U/L (14-36); BILIRUBIN,DIRECT 0.1 mg/dL (0.0-0.4); BILIRUBIN,TOTAL 0.1 mg/dL (0.2-1.3); BLOOD UREA NITROGEN 7 mg/dL (7-20); CALCIUM 9.1 mg/dL (8.4-10.2); CARBON DIOXIDE 24 mmol/L (22-30); CHLORIDE 100 mmol/L (98-107); GLUCOSE 97 mg/dL (75-110); POTASSIUM 3.9 mmol/L (3.6-5.0); SODIUM 135.3 mmol/L (137-145); TOTAL PROTEIN 6.6 g/dL (6.3-8.2)
[2018-01-03 23:56] LABS: ARTERIAL BLOOD FIO2 ROOM AIR
[2018-01-04] MEDS ORDERED: GUAIFENESIN/D-METHORPHAN (200-20 MG) SYRUP 10 ML PO PRN (01:24)
[2018-01-04] MEDS: IPRATROPIUM/ALBUTEROL 0.5-2.5 MG/3 ML AMPUL NEB SCH ×3 (01:55→13:38)
[2018-01-04 07:11] LABS: HEMATOCRIT 33.8 % (36.0-47.0); HEMOGLOBIN 10.7 g/dL (12.0-15.5); MEAN CORPUSCULAR HEMOGLOBIN 22.2 pg (27.0-33.4); MEAN CORPUSCULAR HGB CONC 31.5 g/dL (32.0-36.0); MEAN CORPUSCULAR VOLUME 71 fl (80-97); PLATELET COUNT 521 10^3/uL (150-450); RED CELL DISTRIBUTION WIDTH 15.4 % (11.5-14.0); WHITE BLOOD COUNT 11.1 10^3/uL (4.0-10.5)
[2018-01-04 07:43] LABS: ANION GAP 11 (5-19); BLOOD UREA NITROGEN 5 mg/dL (7-20); CALCIUM 9.6 mg/dL (8.4-10.2); CARBON DIOXIDE 23 mmol/L (22-30); CHLORIDE 107 mmol/L (98-107); GLUCOSE 114 mg/dL (75-110); POTASSIUM 4.4 mmol/L (3.6-5.0); SODIUM 140.8 mmol/L (137-145)
[2018-01-04 09:13] VITALS: BP 143/97
[2018-01-04] MEDS ORDERED: LACTOBACILLUS ACIDOPHILUS 250 MG TAB PO SCH (10:00)
[2018-01-04] MEDS ORDERED: PREDNISONE 20 MG TABLET PO SCH (10:00)
[2018-01-04] MEDS ORDERED: OSELTAMIVIR PHOSPHATE 75 MG CAPSULE PO SCH ×2 (10:00→18:00)
--- NOTE | 2018-01-04 14:48 | PDOC DISCHARGE SUMMARY ---
General - Admit/Disc Date/PCP Admission Date/Primary Care Provider: 01/03/18 23:09 RONA ROCHA Discharge Date: 01/04/18 - Discharge Diagnosis (1) Bilateral pneumonia Is this a current diagnosis for this admission?: Yes Summary: Presented with tachycardia, subjective fevers, and leukocytosis. Imaging (CTA chest) consistent bilateral PNA (R>L). Patient started on Rocephin, Zithromax and Tamiflu by admitting physician. Blood cultures ordered. On day of discharge , 01/04, clinically doing much better. O2 sats >95%. Continues to have cough but mucus is much looser. Feels that steroids really helped. Denies fevers, chills, Ambulating well without SOB. OK with discharge today. PLan - Script given for Cefuroxime 500mg BID * 6 days and Azithromycin 250mg daily * 4 days - Script given for Prednisone 40mg daily * 4 days - Continue supportive care including Mucinex as needed - Blood cultures are pending - Did not continue Tamiflu given rapid improvement in symptoms (2) Morbid obesity with BMI of 50.0-59.9, adult Is this a current diagnosis for this admission?: Yes Summary: Encouraged weight loss and exercise. (3) Elevated BP without diagnosis of hypertension Is this a current diagnosis for this admission?: Yes Summary: Systolic blood pressures were in 130-140s, which is elevated for a 22 year old. Should be re-evaluated as an outpatient. Consider non-medication interventions such as diet and exercise. - Additional Information Resuscitation Status: Full Code Discharge Activity: Activity As Tolerated Prescriptions: Azithromycin [Zithromax 250 mg Tablet] 250 mg PO DAILY #4 tablet Cefuroxime Axetil [Ceftin 500 mg Tablet] 500 mg PO BID 6 Days #12 tablet Prednisone [Deltasone 20 mg Tablet] 40 mg PO DAILY 4 Days #8 tablet Home Medications: Azithromycin [Zithromax 250 mg Tablet] 250 mg PO DAILY #4 tablet 01/04/18 Cefuroxime Axetil [Ceftin 500 mg Tablet] 500 mg PO BID 6 Days #12 tablet Prednisone [Deltasone 20 mg Tablet] 40 mg PO DAILY 4 Days #8 tablet 01/04/18 History of Present Illness History of Present Illness: LEON SANCHEZ is a 22 year old female with history of morbidly obesity who was admitted with SOB and fevers. On 12/29/2017, the patient apparently started having intermittent fever, chills and worsening shortness of breath with productive cough of clear sputum. She denied any sick contacts but she said that she was recently in [place]. Three days later on Tuesday, she was seen in the ER in [place] and diagnosed with pneumonia. She was discharged on 2 different antibiotics. She followed with her PCP the following day who discontinued 1 of the antibiotics because it was making her vomit. She continued taking Levaquin (possibly) according to ED physician's note. She also was using a rescue inhaler and nebulizer treatment every 4 hours with no improvement of her dyspnea so she decided to come back to the hospital for further management and treatment. She actually was here earlier today and was discharged from the ER on the same regimen. She denied any chest pain or leg swelling but complained of feeling nauseous, no vomiting or abdominal pain. She has been having diarrhea since she was started on antibiotics, about 5 BMs per day but she denied any urinary symptoms. She also said that she felt generally weak. In the ED, her temperature was 98.8, heart rate 110, respiratory rate 34, blood pressure 145/75 with oxygen saturation of 100% on room air. A CAT scan angiogram of the chest was done which showed multilobar pneumonia, no PE. She received 1 g Rocephin x1, 500 mg IV Zithromax x1 in addition to 75 mg Tamiflu 1. Physical Exam Vital Signs: Temp Pulse Resp BP Pulse Ox 98.2 F 90 22 H 143/97 H 94 01/04/18 12:13 01/04/18 12:13 01/04/18 12:13 01/04/18 12:13 01/04/18 12:13 Intake & Output 01/03/18 01/04/18 01/05/18 06:59 06:59 06:59 Intake Total 825 Balance 825 Weight 153.2 kg 153.2 kg General appearance: PRESENT: no acute distress, morbidly obese, other - Well appearing Head exam: PRESENT: normocephalic Mouth exam: PRESENT: moist Respiratory exam: PRESENT: crackles - Occasional. ABSENT: tachypnea, unlabored , wheezes Cardiovascular exam: PRESENT: +S1, +S2. ABSENT: systolic murmur, tachycardia GI/Abdominal exam: PRESENT: soft. ABSENT: tenderness Neurological exam: PRESENT: alert, awake, CN II-XII grossly intact Psychiatric exam: PRESENT: appropriate affect Results Laboratory Results: 01/04/18 06:25 01/04/18 06:25 01/03/18 01/04/18 01/04/18 23:30 06:25 06:25 WBC 11.1 H RBC 4.80 Hgb 10.7 L Hct 33.8 L MCV 71 L MCH 22.2 L MCHC 31.5 L RDW 15.4 H Plt Count 521 H Carbonic Acid 1.17 HCO3/H2CO3 Ratio 21:1 ABG pH 7.42 ABG pCO2 39.0 ABG pO2 74.1 L ABG HCO3 24.8 ABG O2 Saturation 95.2 ABG Base Excess 0.4 FiO2 ROOM AIR Sodium 140.8 Potassium 4.4 Chloride 107 Carbon Dioxide 23 Anion Gap 11 BUN 5 L Creatinine 0.56 Est GFR ( Amer) > 60 Est GFR (Non-Af Amer) > 60 Glucose 114 H Calcium 9.6 Magnesium 2.2 Impressions: Chest/Abdomen CTA 01/03/18 21:46 IMPRESSION: 1. Bilateral probable pneumonic infiltrates with patchy areas of consolidation and airspace disease right greater than left. 2. No evidence of pulmonary embolus. 3. Cardiomegaly. No gross aortic disease. Qualifiers - * PATEINT BEING DISCHARGED WITH ANY OF THE FOLLOWING DIAGNOSIS?: No
[2018-01-04] MEDS ORDERED: CEFTRIAXONE SODIUM 1,000 MG in NORMAL SALINE 100 ML IV SCH (22:00)
[2018-01-04] MEDS ORDERED: CEFTRIAXONE 1 GM/D5W RTU 1 GM/50 ML RTUPB IV SCH (22:00)
[2018-01-04] MEDS ORDERED: AZITHROMYCIN 500 MG in DEXTROSE 5%-WATER 250 ML IV SCH (22:00)
== END 2018-01-04 13:00 | disposition home or self-care (01) | DRG 194 ==
LOC: ER 21:15 → OBSVTOIN 23:09 → EH 23:09 → 4N 01-04 00:18
PROVIDERS: ADMIT Internal Medicine Geriatric Medicine; ATTEND Internal Medicine Geriatric Medicine
DX: J18.1 Lobar pneumonia, unspecified organism (principal); Z68.43 Body mass index [BMI] 50.0-59.9, adult; E66.01 Morbid (severe) obesity due to excess calories; D64.9 Anemia, unspecified; R00.0 Tachycardia, unspecified; Z79.899 Other long term (current) drug therapy; Z83.3 Family history of diabetes mellitus; Z80.9 Family history of malignant neoplasm, unspecified; Z82.49 Family history of ischemic heart disease and other diseases of the circulatory system
CPT/HCPCS: 36415; 71275; 80048; 80053; 82803; 83605; 83735; 83880; 85025; 85027; 87040; 94640; 96365; 99291; J0456; J3490; J7030; J7512; J7620

== ENCOUNTER 2018-01-09 16:34 | Emergency (ER) | payer BC ==
--- NOTE | 2018-01-09 18:34 | ER Document Report ---
ED Medical Screen (RME) - General Chief Complaint: Shortness Of Breath Stated Complaint: POSSIBLE FLU Time Seen by Provider: 01/09/18 18:32 Notes: Patient was diagnosed with pneumonia little over a week ago in [place]. She started on Levaquin and Zithromax. Levaquin was discontinued because she was getting nauseated. Patient has finished Zithromax. Patient is felt no better. She did return here and was admitted last week for 1 day. She continued to not feel better so she went back to [place] and a another CT scan was done. She states she was told the second CT scan showed that her pneumonia was no better than on the first CT scan. Patient returns today because she continues to have shortness of breath and weakness. TRAVEL OUTSIDE OF THE [place] IN LAST 30 DAYS: No - Related Data Allergies/Adverse Reactions: No Known Allergies Allergy (Verified 07/02/17 08:18) Past Medical History - Social History Chew tobacco use (# tins/day): No Frequency of alcohol use: Occasional Drug Abuse: None - Past Medical History Cardiac Medical History: Reports: Hx Hypertension Pulmonary Medical History: Reports: Hx Pneumonia Renal/ Medical History: Denies: Hx Peritoneal Dialysis - Immunizations Immunizations up to date: No Hx Diphtheria, Pertussis, Tetanus Vaccination: No History of Influenza Vaccine for 07/2017 - 12/2017 Season: Refused Physical Exam - Vital signs Vitals: Temp Pulse Resp BP Pulse Ox 98.4 F 104 H 22 H 152/103 H 100 01/09/18 16:47 01/09/18 16:47 01/09/18 16:47 01/09/18 16:47 01/09/18 16:47 Course - Vital Signs Vital signs: Temp Pulse Resp BP Pulse Ox 98.4 F 104 H 22 H 152/103 H 100 01/09/18 16:47 01/09/18 16:47 01/09/18 18:05 01/09/18 16:47 01/09/18 16:47
[2018-01-09 20:20] LABS: ABSOLUTE EOSINOPHILS # (AUTO) 0.4 10^3/uL (0.0-0.6); ABSOLUTE LYMPHOCYTES (AUTO) 1.6 10^3/uL (0.5-4.7); ABSOLUTE MONOCYTES (AUTO) 0.7 10^3/uL (0.1-1.4); ABSOLUTE NEUT (AUTO) 7.2 10^3/uL (1.7-8.2); BASOPHILS % (AUTO) 0.5 % (0-2); EOSINOPHILS % (AUTO) 4.5 % (0-6); HEMATOCRIT 34.5 % (36.0-47.0); HEMOGLOBIN 10.8 g/dL (12.0-15.5); LYMPHOCYTES % (AUTO) 15.8 % (13-45); MEAN CORPUSCULAR HGB CONC 31.2 g/dL (32.0-36.0); MEAN CORPUSCULAR VOLUME 70 fl (80-97); MONOCYTES % (AUTO) 6.9 % (3-13); PLATELET COUNT 542 10^3/uL (150-450); RED CELL DISTRIBUTION WIDTH 15.2 % (11.5-14.0); SEGMENTED NEUTROPHILS % (AUTO) 72.3 % (42-78); TOTAL CELLS COUNTED % (AUTO) 100 %
[2018-01-09 20:39] LABS: ALANINE AMINOTRANSFERASE 80 U/L (9-52); ALBUMIN 3.4 g/dL (3.5-5.0); ALKALINE PHOSPHATASE 131 U/L (38-126); ANION GAP 7 (5-19); ASPARTATE AMINO TRANSFERASE 40 U/L (14-36); BILIRUBIN,DIRECT 0.3 mg/dL (0.0-0.4); BILIRUBIN,TOTAL 0.3 mg/dL (0.2-1.3); BLOOD UREA NITROGEN 6 mg/dL (7-20); CALCIUM 8.9 mg/dL (8.4-10.2); CARBON DIOXIDE 30 mmol/L (22-30); CHLORIDE 101 mmol/L (98-107); GLUCOSE 82 mg/dL (75-110); POTASSIUM 3.5 mmol/L (3.6-5.0); SODIUM 137.8 mmol/L (137-145); TOTAL PROTEIN 6.8 g/dL (6.3-8.2)
[2018-01-09] MEDS ORDERED: LEVOFLOXACIN 750 MG/D5W RTU 750 MG/150 ML RTUPB IV ONE (21:35)
--- NOTE | 2018-01-09 21:35 | ER Document Report ---
ED General - General Chief Complaint: Shortness Of Breath Stated Complaint: POSSIBLE FLU Time Seen by Provider: 01/09/18 18:32 Notes: Patient is a 22-year-old female without past medical history, recently diagnosed with bilateral pneumonia which was hospitalized and has been treated with multiple courses of antibiotics of the patient admits that she is only completed 1 of the four total course of antibiotics that have been prescribed to her since first being diagnosed with a bilateral pneumonia 9 days ago. Patient states that she has had 3 CT scans of her chest and this period of time between [facility] in [place] and here at [facility]. She states that they continue to show bilateral pneumonias. She represents today due to concerns that her symptoms have not resolved. She notes that although on her most recent visit to [facility] she was prescribed additional antibiotics, she is not currently taking them. She states that when she was on steroids during her last hospitalization this did seem to improve her symptoms. She denies any fever, vomiting, weakness, numbness, or inability to exert herself. No orthopnea. No history of DVT or pulmonary embolus. TRAVEL OUTSIDE OF THE [place] IN LAST 30 DAYS: No - Related Data Allergies/Adverse Reactions: No Known Allergies Allergy (Verified 07/02/17 08:18) Past Medical History - General Information source: Patient - Social History Smoking Status: Never Smoker Chew tobacco use (# tins/day): No Frequency of alcohol use: Occasional Drug Abuse: None Lives with: Parents Family History: DM, Hypertension, Malignancy Patient has suicidal ideation: No Patient has homicidal ideation: No - Past Medical History Cardiac Medical History: Reports: Hx Hypertension Pulmonary Medical History: Reports: Hx Pneumonia Renal/ Medical History: Denies: Hx Peritoneal Dialysis - Immunizations Immunizations up to date: No Hx Diphtheria, Pertussis, Tetanus Vaccination: No Review of Systems - Review of Systems Notes: Constitutional: Negative for fever. HENT: Negative for sore throat. Eyes: Negative for visual changes. Cardiovascular: Negative for chest pain. Respiratory: Positive for shortness of breath. Gastrointestinal: Negative for abdominal pain, vomiting or diarrhea. Genitourinary: Negative for dysuria. Musculoskeletal: Negative for back pain. Skin: Negative for rash. Neurological: Negative for headaches, weakness or numbness. 10 point ROS negative except as marked above and in HPI. Physical Exam - Vital signs Vitals: Temp Pulse Resp BP Pulse Ox 98.4 F 104 H 22 H 152/103 H 100 01/09/18 16:47 01/09/18 16:47 01/09/18 16:47 01/09/18 16:47 01/09/18 16:47 Interpretation: Hypertensive, Tachycardic Notes: PHYSICAL EXAMINATION: GENERAL: Well-appearing, well-nourished and in no acute distress. HEAD: Atraumatic, normocephalic. EYES: Pupils equal round and reactive to light, extraocular movements intact, sclera anicteric, conjunctiva are normal. ENT: nares patent, oropharynx clear without exudates. Moist mucous membranes. NECK: Normal range of motion, supple without lymphadenopathy LUNGS: Mild tachypnea but no distress. Breath sounds clear to auscultation bilaterally and equal. No wheezes rales or rhonchi. HEART: Regular tachycardia without murmurs ABDOMEN: Soft, morbidly obese, nontender, normoactive bowel sounds. No guarding , no rebound. No masses appreciated. EXTREMITIES: Normal range of motion, no pitting or edema. No cyanosis. NEUROLOGICAL: No focal neurological deficits. Moves all extremities spontaneously and on command. PSYCH: Normal mood, normal affect. SKIN: Warm, Dry, normal turgor, no rashes or lesions noted. Course - Re-evaluation Re-evalutation: 01/09/18 21:33 Patient presents with 9 days of ongoing shortness of breath overall she is nontoxic in appearance, mild tachypnea but not toxic or in any distress at time of my assessment. Her chest x-ray does show marked improvement today relative to the there is still trace infiltrates bilaterally. Not currently taking any antibiotic therapy. Patient has already had 3 CT scans of the chest in the span of the past 9 days none of which have shown anything other than bilateral pneumonia. I believe there is any indication to repeat to have a high level concern for iatrogenic injury from exposure to ionizing radiation from so many CT scans. Her laboratories today are overall unremarkable without leukocytosis , mild anemia, no significant metabolic derangements. Patient has ready been evaluated for a cardiac etiology and prognosis was noted and normal. This is overall improving on diagnostic imaging. 01/09/18 22:14 Radiology has read the x-ray and agrees that it is continuing to improve. Patient remains without hypoxemia, respiratory 20, heart rate is currently 90. I believe patient is appropriate for discharge home as her aging does show significant improvement of her pneumonia. She will go home on a course of doxycycline as she states she cannot tolerate levofloxacin. We will also provide a Lidoderm patch for pain control. At this time will discharge with return precautions and follow-up recommendations. Verbal discharge instructions given a the bedside and opportunity for questions given. Medication warnings reviewed. Patient is in agreement with this plan and has verbalized understanding of return precautions and the need for primary care follow-up in the next 24-72 hours. - Vital Signs Vital signs: Temp Pulse Resp BP Pulse Ox 98.6 F 104 H 20 157/89 H 97 01/09/18 22:01 01/09/18 16:47 01/09/18 22:01 01/09/18 22:01 01/09/18 22:01 - Laboratory Result Diagrams: 01/09/18 20:10 01/09/18 20:10 Laboratory results interpreted by me: 01/09/18 01/09/18 20:10 20:10 Hgb 10.8 L Hct 34.5 L MCV 70 L MCH 22.0 L MCHC 31.2 L RDW 15.2 H Plt Count 542 H Potassium 3.5 L BUN 6 L AST 40 H ALT 80 H Alkaline Phosphatase 131 H Albumin 3.4 L - Diagnostic Test Radiology reviewed: Image reviewed, Reports reviewed Radiology results interpreted by me: 01/09/18 21:35 Chest x-ray: Bilateral infiltrates improved from prior chest x-ray. Discharge - Discharge Clinical Impression: Morbid obesity with BMI of 50.0-59.9, adult, Shortness of breath Bilateral pneumonia Qualifiers: Pneumonia type: due to unspecified organism Lung location: lower lobe of lung Qualified Code(s): J18.1 - Lobar pneumonia, unspecified organism Condition: Good Disposition: HOME, SELF-CARE Additional Instructions: You have been diagnosed with a pneumonia. Your chest x-ray shows significant improvement from the . It is very important that you take all of your antibiotics until they are gone even if you are feeling better. Please return to the emergency department immediately if you began having worsening shortness of breath, become confused, have worsening pain, pass out, have persistent vomiting that prevents you from being able to drink fluids for more than 12 hours, or have any other symptoms that are worrisome to you. Please follow-up with your primary care doctor in the next 1-2 days. Prescriptions: Doxycycline Hyclate 100 mg PO BID #14 capsule Forms: Return to Work Referrals: RONA ROCHA MD [Primary Care Provider] - Follow up in 3-5 days
--- NOTE | 2018-01-09 22:01 | RADIOLOGY REPORT (SQ) ---
EXAM DESCRIPTION: CHEST SINGLE VIEW COMPLETED DATE/TIME: 01/09/2018 9:12 pm REASON FOR STUDY: sob COMPARISON: 01/03/2018 EXAM PARAMETERS: NUMBER OF VIEWS: One view. TECHNIQUE: Single frontal radiographic view of the chest acquired. RADIATION DOSE: NA LIMITATIONS: None. FINDINGS: LUNGS AND PLEURA: Limited residual infiltrate in the lung bases. There is significant imp rovement since the earlier study. MEDIASTINUM AND HILAR STRUCTURES: No masses. Contour normal. HEART AND VASCULAR STRUCTURES: Heart size is borderline. There is no failure. BONES: No acute findings. HARDWARE: None in the chest. OTHER: No other significant finding. IMPRESSION: Borderline cardiomegaly without failure. Limited residual infiltrate in the lung bases with significant improvement. TECHNICAL DOCUMENTATION: JOB ID: [id number] [employer]- All Rights Reserved Reading location - IP/workstation name: [email or web address]
[2018-01-09] MEDS ORDERED: DEXAMETHASONE SOD PHOS INJ 10 MG/1 ML VIAL IV ONE (22:21)
[2018-01-09 22:28] VITALS: BP 157/89
[2018-01-09] MEDS ORDERED: LIDOCAINE 5% (700 MG) TRANSDERMAL ADH..PATCH TP ONE (22:36)
== END 2018-01-09 22:30 | disposition home or self-care (01) ==
LOC: ER 16:34
DX: J18.1 Lobar pneumonia, unspecified organism (principal); E66.01 Morbid (severe) obesity due to excess calories; Z68.43 Body mass index [BMI] 50.0-59.9, adult; R06.02 Shortness of breath; I10 Essential (primary) hypertension
CPT/HCPCS: 99285; 96375; 96365; 36415; 85025; 80053; 71045; J1100; J1956

== ENCOUNTER 2018-01-26 06:17 | Emergency (ER) | payer BC ==
[2018-01-26] MEDS ORDERED: ACETAMINOPHEN 325 MG TABLET PO ONE (06:53)
--- NOTE | 2018-01-26 06:53 | ER Document Report ---
ED General - General Stated Complaint: CHEST PAIN Time Seen by Provider: 01/26/18 06:38 Mode of Arrival: Ambulatory Information source: Patient Notes: 22-year-old female multiple recent visits to the emergency department for respiratory concerns including bilateral pneumonia for which she was hospitalized presents with complaints of 1 week of intermittent chest pain. Patient notes pain feels sharp started last week went on for a few days resolved yesterday and then came back again today. Patient denies any leg swelling history of DVTs or PEs family history of such recent travel. Patient denies smoking history Patient denies any control TRAVEL OUTSIDE OF THE [place] IN LAST 30 DAYS: No - HPI Onset: Last week Onset/Duration: Intermittent Quality of pain: Sharp Severity: Mild Pain Level: 1 Associated symptoms: Chest pain, Shortness of breath Exacerbated by: Walking Relieved by: Denies Similar symptoms previously: Yes Recently seen / treated by doctor: Yes - Related Data Allergies/Adverse Reactions: No Known Allergies Allergy (Verified 07/02/17 08:18) Past Medical History - Social History Smoking Status: Never Smoker Cigarette use (# per day): No Chew tobacco use (# tins/day): No Smoking Education Provided: No Family History: DM, Hypertension, Malignancy - Past Medical History Cardiac Medical History: Reports: Hx Hypertension Pulmonary Medical History: Reports: Hx Pneumonia Renal/ Medical History: Denies: Hx Peritoneal Dialysis - Immunizations Immunizations up to date: No Hx Diphtheria, Pertussis, Tetanus Vaccination: No Review of Systems - Review of Systems Notes: REVIEW OF SYSTEMS: CONSTITUTIONAL : Denies fever, chills, or sweats. Denies recent illness. EENT: Denies eye, ear, throat, or mouth pain or symptoms. Denies nasal or sinus congestion or discharge. Denies throat, tongue, or mouth swelling or difficulty swallowing. CARDIOVASCULAR: Admits to chest pain RESPIRATORY: Admits to shortness of breath GASTROINTESTINAL: Denies abdominal pain or distention. Denies nausea, vomiting , or diarrhea. Denies blood in vomitus, stools, or per rectum. Denies black, tarry stools. Denies constipation. GENITOURINARY: Denies difficulty urinating, painful urination, burning, frequency, blood in urine, or discharge. FEMALE GENITOURINARY: Denies vaginal bleeding, heavy or abnormal periods, irregular periods. Denies vaginal discharge or odor. MUSCULOSKELETAL: Denies back or neck pain or stiffness. Denies joint pain or swelling. SKIN: Denies rash, lesions or sores. HEMATOLOGIC : Denies easy bruising or bleeding. LYMPHATIC: Denies swollen, enlarged glands. NEUROLOGICAL: Denies confusion or altered mental status. Denies passing out or loss of consciousness. Denies dizziness or lightheadedness. Denies headache. Denies weakness or paralysis or loss of use of either side. Denies problems with gait or speech. Denies sensory loss, numbness, or tingling. Denies seizures. PSYCHIATRIC: Denies anxiety or stress. Denies depression, suicidal ideation, or homicidal ideation. ALL OTHER SYSTEMS REVIEWED AND NEGATIVE. PHYSICAL EXAMINATION: GENERAL: Morbidly obese female HEAD: Atraumatic, normocephalic. EYES: Pupils equal round and reactive to light, extraocular movements intact, conjunctiva are normal. ENT: Nares patent, oropharynx clear without exudates. Moist mucous membranes. NECK: Normal range of motion, supple without lymphadenopathy LUNGS: Breath sounds clear to auscultation bilaterally and equal. No wheezes rales or rhonchi. HEART: Tachycardic ABDOMEN: Soft, nontender, nondistended abdomen. No guarding, no rebound. No masses appreciated. Female : deferred Musculoskeletal: Normal range of motion, no pitting or edema. No cyanosis. NEUROLOGICAL: Cranial nerves grossly intact. Normal speech, normal gait. Normal sensory, motor exams PSYCH: Normal mood, normal affect. SKIN: Warm, Dry, normal turgor, no rashes or lesions noted. Dictation was performed using [employer] voice recognition software Physical Exam - Vital signs Vitals: Temp Pulse Resp BP Pulse Ox 98.3 F 118 H 16 159/94 H 99 01/26/18 06:30 01/26/18 06:30 01/26/18 06:30 01/26/18 06:30 01/26/18 06:30 Course - Re-evaluation Re-evalutation: 01/26/18 07:16 Given multiple recent visits to the hospital and mobilization and sinus tachycardia I have concerns for pulmonary emboli, CTA will be ordered to rule this out. Otherwise patient is satting 97-99% on room air 01/26/18 10:03 pt cta was negative, given ativan and symptoms resolved. pt otherwise is well appearing in no distress, will dc home After performing a Medical Screening Examination, I estimate there is LOW risk for RUPTURED ESOPHAGUS, PNEUMOTHORAX, PULMONARY EMBOLISM, ACUTE CORONARY SYNDROME, OR THORACIC AORTIC DISSECTION, thus I consider the discharge disposition reasonable. I have reevaluated this patient multiple times and no significant life threatening changes are noted. The patient and I have discussed the diagnosis and risks, and we agree with discharging home with close follow-up. We also discussed returning to the Emergency Department immediately if new or worsening symptoms occur. We have discussed the symptoms which are most concerning (e.g., bloody sputum, worsening pain or shortness of breath) that necessitate immediate return. - Vital Signs Vital signs: Temp Pulse Resp BP Pulse Ox 98.3 F 118 H 19 149/88 H 99 01/26/18 06:30 01/26/18 06:30 01/26/18 08:40 01/26/18 08:40 01/26/18 08:40 - Laboratory Result Diagrams: 01/26/18 07:00 01/26/18 07:00 Laboratory results interpreted by me: 01/26/18 07:00 WBC 13.2 H Hgb 10.1 L Hct 33.0 L MCV 71 L MCH 21.6 L MCHC 30.6 L RDW 16.4 H Plt Count 693 H Absolute Neutrophils 10.0 H - Diagnostic Test Radiology reviewed: Image reviewed - cta chest no acute abnormality, Reports reviewed Discharge - Discharge Clinical Impression: Anxiety Chest pain Qualifiers: Chest pain type: unspecified Qualified Code(s): R07.9 - Chest pain, unspecified Condition: Stable Disposition: HOME, SELF-CARE Instructions: Chest Wall Pain ([facility]), Chest Pain of Unclear Cause ([facility]) Prescriptions: Hydroxyzine Pamoate [Vistaril 25 mg Capsule] 25 mg PO Q6 #120 capsule Referrals: RONA ROCHA MD [Primary Care Provider] - Follow up tomorrow
[2018-01-26 07:33] LABS: ALANINE AMINOTRANSFERASE 46 U/L (9-52); ALBUMIN 3.8 g/dL (3.5-5.0); ALKALINE PHOSPHATASE 80 U/L (38-126); ANION GAP 11 (5-19); ASPARTATE AMINO TRANSFERASE 31 U/L (14-36); BILIRUBIN,DIRECT 0.2 mg/dL (0.0-0.4); BILIRUBIN,TOTAL 0.2 mg/dL (0.2-1.3); BLOOD UREA NITROGEN 11 mg/dL (7-20); CALCIUM 9.2 mg/dL (8.4-10.2); CARBON DIOXIDE 29 mmol/L (22-30); CHLORIDE 102 mmol/L (98-107); GLUCOSE 96 mg/dL (75-110); POTASSIUM 3.6 mmol/L (3.6-5.0); SODIUM 141.5 mmol/L (137-145); TOTAL PROTEIN 7.7 g/dL (6.3-8.2)
[2018-01-26 07:36] LABS: ABSOLUTE BASOPHILS # (AUTO) 0.1 10^3/uL (0.0-0.2); ABSOLUTE EOSINOPHILS # (AUTO) 0.3 10^3/uL (0.0-0.6); ABSOLUTE MONOCYTES (AUTO) 0.9 10^3/uL (0.1-1.4); BASOPHILS % (AUTO) 0.5 % (0-2); EOSINOPHILS % (AUTO) 1.9 % (0-6); HEMOGLOBIN 10.1 g/dL (12.0-15.5); LYMPHOCYTES % (AUTO) 15.2 % (13-45); MEAN CORPUSCULAR HEMOGLOBIN 21.6 pg (27.0-33.4); MEAN CORPUSCULAR HGB CONC 30.6 g/dL (32.0-36.0); MEAN CORPUSCULAR VOLUME 71 fl (80-97); PLATELET COUNT 693 10^3/uL (150-450); RED BLOOD COUNT 4.67 10^6/uL (3.72-5.28); RED CELL DISTRIBUTION WIDTH 16.4 % (11.5-14.0); SEGMENTED NEUTROPHILS % (AUTO) 75.4 % (42-78); TOTAL CELLS COUNTED % (AUTO) 100 %; WHITE BLOOD COUNT 13.2 10^3/uL (4.0-10.5)
--- NOTE | 2018-01-26 07:37 | EKG REPORT ---
SEVERITY:- BORDERLINE ECG - SINUS TACHYCARDIA BORDERLINE T ABNORMALITIES, INFERIOR LEADS : Confirmed by: Irvin Gould MD 26-Jan-2018 07:37:30
[2018-01-26] MEDS ORDERED: KETOROLAC TROMETHAMINE INJ/PF 30 MG/1 ML SDV IV ONE (08:20)
--- NOTE | 2018-01-26 08:29 | RADIOLOGY REPORT (SQ) ---
EXAM DESCRIPTION: CTA CHEST COMPLETED DATE/TIME: 01/26/2018 8:12 am REASON FOR STUDY: sob, recent immobilization COMPARISON: Chest films 01/09/2018, 01/03/2018, 02/16/2017, 01/23/2013 CT chest 01/03/2018 TECHNIQUE: CT scan of the chest performed using helical scanning technique with dynamic intravenous contrast injection. Images reviewed with lung, soft tissue and bone windows. Reconstructed coronal and sagittal MPR images reviewed. Additional 3 dimensional post-processing performed to develop Maximal Intensity Projection images (ID P). All images stored on PACS. All CT scanners at this facility use dose modulation, iterative reconstruction, and/or weight based d osing when appropriate to reduce radiation dose to as low as reasonably achievable (ALARA). [facility]: Dose Right [facility]: CareDose [facility]: Dose Right [facility]: Teradose 4D [facility]: Shippable CONTRAST TYPE AND DOSE: contrast/concentration: Isovue 370.00 mg/ml; Total Contrast Delivered: 86.0 ml; Total Saline Delivered: 80.0 ml Contrast bolus optimized for the pulmonary arteries. Not diagnostic for the aorta. RENAL FUNCTION: Creatinine 0.63 RADIATION DOSE: CT Rad equipment meets quality standard of care and radiation dose reduction techniq ues were employed. CTDIvol: 47.7 - 56.2 mGy. DLP: 1734 mGy-cm. . LIMITATIONS: None. FINDINGS: LUNGS AND PLEURA: The dense consolidation seen scattered throughout the right lung and emre ng the left lung base 01/11/2018 has resolved. There is bandlike residual scarring in the right middl e lobe lateral segment, and right lower lobe lateral basal segment. No acute infiltrates. No pleural effusion. No pneumothorax. AORTA AND GREAT VESSELS: No aneurysm. Contrast bolus not optimized for the aorta. HEART: No pericardial effusion. No significant coronary artery calcifications. PULMONARY ARTERIES: No emboli visualized in the main pulmonary arteries or the segmental branches. HILAR AND MEDIASTINAL STRUCTURES: No identified masses or abnormal nodes. HARDWARE: None in the chest. UPPER ABDOMEN: No significant findings. Limited exam. THYROID AND OTHER SOFT TISSUES: No masses. No adenopathy. BONES: No acute or significant finding. 3D MIPS: Confirm above findings. OTHER: No other significant finding. IMPRESSION: No acute findings COMMENT: Quality ID # [id number]: Final reports with documentation of one or more dose reduction techniques (e.g., Automated exposure control, adjustment of the mA and/or kV according to patient size, use of iterative reconstruction technique) TECHNICAL DOCUMENTATION: JOB ID: [id number] [employer]- All Rights Reserved Reading location - IP/workstation name: [email or web address]
[2018-01-26] MEDS ORDERED: LORAZEPAM INJ 2 MG/1 ML VIAL IV ONE (08:33)
[2018-01-26 10:21] VITALS: BP 147/81
== END 2018-01-26 10:00 | disposition home or self-care (01) ==
LOC: ER 06:17
DX: R07.9 Chest pain, unspecified (principal); F41.9 Anxiety disorder, unspecified; R06.02 Shortness of breath; I10 Essential (primary) hypertension
CPT/HCPCS: 93005; 99285; 96374; 96375; 36415; 85025; 80053; 71275; 93010; J1885; J2060

== ENCOUNTER 2018-02-07 10:30 | Emergency (ER) | payer BC ==
--- NOTE | 2018-02-07 12:44 | RADIOLOGY REPORT (SQ) ---
EXAM DESCRIPTION: CHEST 2 VIEWS COMPLETED DATE/TIME: 02/07/2018 12:25 pm REASON FOR STUDY: cough, wheeze, recent pneumonia COMPARISON: Chest CT dated 01/26/2018. Chest x-ray dated 01/09/2018. EXAM PARAMETERS: NUMBER OF VIEWS: two views TECHNIQUE: Digital Frontal and Lateral radiographic views of the chest acquired. RADIATION DOSE: NA LIMITATIONS: none FINDINGS: LUNGS AND PLEURA: Minimal density in the right lower lobe. Left lung clear. No pleural e ffusion. No pneumothorax. MEDIASTINUM AND HILAR STRUCTURES: No masses or contour abnormalities. HEART AND VASCULAR STRUCTURES: Heart upper limits of normal size. No evidence for failure. BONES: No acute findings. HARDWARE: None in the chest. OTHER: No other significant finding. IMPRESSION: MINIMAL DENSITY IN THE RIGHT LOWER LOBE WHICH MAY REPRESENT RESIDUAL ATELECTASIS. CANNO T EXCLUDE EARLY DEVELOPING INFILTRATE. TECHNICAL DOCUMENTATION: JOB ID: [id number] [employer]- All Rights Reserved Reading location - IP/workstation name: [email or web address]
--- NOTE | 2018-02-07 13:05 | ER Document Report ---
HPI - HPI Patient complains to provider of: "I think I have pneumonia again" Onset: Other - Tuesday Onset/Duration: Gradual Pain Level: 3 Context: 22-year-old non-smoker female complaining of cough since Tuesday. No fever or chills. No shortness of breath or chest pain. She thinks she has pneumonia again. She was hospitalized in December for bilateral pneumonia. PCP is Dr. Mccallum and she took amoxicillin at the beginning of January for pneumonia. She has not had any antibiotics for 2 weeks. Associated Symptoms: None Exacerbated by: Denies Relieved by: Denies Similar symptoms previously: Yes Recently seen / treated by doctor: No - ROS ROS below otherwise negative: Yes Systems Reviewed and Negative: Yes All other systems reviewed and negative - RESPIRATORY Respiratory: REPORTS: Trouble Breathing - slight, Coughing Past Medical History - General Information source: Patient - Social History Smoking Status: Never Smoker Chew tobacco use (# tins/day): No Frequency of alcohol use: None Drug Abuse: None Lives with: Family Family History: DM, Hypertension, Malignancy Patient has suicidal ideation: No Patient has homicidal ideation: No - Past Medical History Cardiac Medical History: Reports: Hx Hypertension Pulmonary Medical History: Reports: Hx Pneumonia Renal/ Medical History: Denies: Hx Peritoneal Dialysis Surgical Hx: Negative - Immunizations Immunizations up to date: No Hx Diphtheria, Pertussis, Tetanus Vaccination: No Vertical Provider Document - CONSTITUTIONAL Agree With Documented VS: Yes Exam Limitations: No Limitations - INFECTION CONTROL TRAVEL OUTSIDE OF THE [place] IN LAST 30 DAYS: No - HEENT HEENT: Normal ENT Exam - NECK Neck: Supple. negative: Lymphadenopathy-Left, Lymphadenopathy-Right - RESPIRATORY Respiratory: Breath Sounds Normal, No Respiratory Distress - CARDIOVASCULAR Cardiovascular: Regular Rate, Regular Rhythm - GI/ABDOMEN Gastrointestinal: Abdomen Soft, Abdomen Non-Tender, No Organomegaly - MUSCULOSKELETAL/EXTREMETIES Musculoskeletal/Extremeties: MAEW - NEURO Level of Consciousness: Awake, Alert - DERM Integumentary: Warm, Dry, No Rash Course - Re-evaluation Re-evalutation: 02/07/18 13:05 Chest x-ray shows atelectasis or early developing pneumonia in the right. I reviewed her CT scan done in the emergency department that was normal on 01-26. She is requesting steroids and liquid antibiotics because the pills messed up her stomach so bad. she can follow-up with Dr. Rocha her PCP gor chest xray in 1 month. Patient is asking for amoxicillin that Dr. Mccallum gave her early January but I said that Augmentin would kill more bacteria if this is a pneumonia and she does not want take azithromycin. Her pulse is down to 102 which when reviewing her previous visits to the emergency room she had pulses over 100 every pulse check. - Vital Signs Vital signs: Temp Pulse Resp BP Pulse Ox 98.1 F 118 H 20 154/108 H 97 02/07/18 10:37 02/07/18 10:37 02/07/18 10:37 02/07/18 10:37 02/07/18 10:37 Discharge - Discharge Clinical Impression: atelectasis versus early pneumonia -rt Condition: Good Disposition: HOME, SELF-CARE Instructions: Augmentin ([facility]), Pneumonia ([facility]) Additional Instructions: See Dr. Mccallum in 1 week sooner if worse Get another chest x-ray in 1 month to ensure resolution of what they see on the x-ray today Plenty of fluids Steroids Augmentin Prescriptions: Amox Tr/Potassium Clavulanate [Augmentin Es 600 mg-42.9 mg/5 ml Susp] 10 ml PO BID #200 ml Prednisone [Deltasone 10 mg Tablet] 10 mg PO ASDIR PRN #21 tablet PRN Reason: Forms: Return to Work Referrals: RONA ROCHA MD [Primary Care Provider] - Follow up in 1 week
[2018-02-07 13:10] VITALS: BP 151/100
== END 2018-02-07 13:30 | disposition home or self-care (01) ==
LOC: ER 10:30
DX: J18.9 Pneumonia, unspecified organism (principal); I10 Essential (primary) hypertension
CPT/HCPCS: 71046; 99283

== ENCOUNTER 2018-02-27 13:37 | Emergency (ER) | payer BC ==
[2018-02-27 13:48] VITALS: BP 153/97
--- NOTE | 2018-02-27 14:33 | ER Document Report ---
ED General - General Chief Complaint: Shortness Of Breath Stated Complaint: POSSIBLE PNEUMONIA, EYE PAIN Time Seen by Provider: 02/27/18 14:18 Notes: 22-year-old female here with complaints of dry cough and some shortness of breath ongoing for the past few days. She has also had some bilateral eye redness and pain when she touches her eyes but not otherwise. Denies eye watering or discharge. No fevers or chills. Reports she has had pneumonia twice in the past and it has resolved with Augmentin and prednisone use. TRAVEL OUTSIDE OF THE [place] IN LAST 30 DAYS: No - Related Data Allergies/Adverse Reactions: No Known Allergies Allergy (Verified 02/27/18 13:40) Past Medical History - Social History Smoking Status: Never Smoker Chew tobacco use (# tins/day): No Frequency of alcohol use: Occasional Drug Abuse: None Family History: DM, Hypertension, Malignancy Patient has suicidal ideation: No Patient has homicidal ideation: No - Past Medical History Cardiac Medical History: Reports: Hx Hypertension Pulmonary Medical History: Reports: Hx Pneumonia Renal/ Medical History: Denies: Hx Peritoneal Dialysis - Immunizations Immunizations up to date: No Hx Diphtheria, Pertussis, Tetanus Vaccination: No Review of Systems - Review of Systems Notes: See history of present illness for pertinent positive review of systems; otherwise all review of systems have been reviewed and are negative Physical Exam - Vital signs Vitals: Temp Pulse Resp BP Pulse Ox 99.4 F 106 H 18 153/97 H 97 02/27/18 13:46 02/27/18 13:46 02/27/18 13:46 02/27/18 13:46 02/27/18 13:46 - Notes Notes: PHYSICAL EXAMINATION: GENERAL: Well-appearing and in no acute distress. HEAD: Atraumatic, normocephalic. EYES: Pupils equal round and reactive to light, extraocular movements intact, sclera anicteric, conjunctiva are normal. ENT: nares patent, oropharynx clear without exudates. Moist mucous membranes. NECK: Normal range of motion, supple without lymphadenopathy LUNGS: CTAB and equal. No wheezes rales or rhonchi. HEART: Regular rate and rhythm without murmurs ABDOMEN: Soft, no tenderness. No facial grimacing/wincing upon palpation. No guarding, no rebound. EXTREMITIES: Normal range of motion, no pitting edema. No cyanosis. NEUROLOGICAL: Cranial nerves grossly intact. Normal sensory/motor exams. PSYCH: Normal mood, normal affect. SKIN: Warm, Dry, normal turgor, no rashes or lesions noted Course - Re-evaluation Re-evalutation: 02/27/18 14:32 MEDICAL DECISION MAKING: Concern for bronchitis versus URI versus pneumonia Given her history, will prescribe Augmentin and prednisone Instructed follow-up PCP next day or few Patient understands and agrees to the plan of care - Vital Signs Vital signs: Temp Pulse Resp BP Pulse Ox 99.4 F 106 H 18 153/97 H 97 02/27/18 13:46 02/27/18 13:46 02/27/18 14:19 02/27/18 13:46 02/27/18 13:46 Discharge - Discharge Clinical Impression: Cough Condition: Good Disposition: HOME, SELF-CARE Additional Instructions: You were seen in the emergency department at [facility]. Finish the antibiotics and steroids and do not skip any doses. Please followup with your primary physician in the next few days for further management/evaluation. Please return to the emergency department for worsening of symptoms or any symptom that you deem to be concerning or life-threatening. Thank you for allowing us to be part of your care. Prescriptions: Amox Tr/Potassium Clavulanate [Augmentin 875-125 Tablet] 1 tab PO BID 10 Days tablet Prednisone [Deltasone 20 mg Tablet] 3 tab PO DAILY 3 Days tablet
== END 2018-02-27 14:41 | disposition home or self-care (01) ==
LOC: ER 13:37
DX: R05 Cough (principal); R06.02 Shortness of breath; H57.8 Other specified disorders of eye and adnexa; I10 Essential (primary) hypertension; Z87.01 Personal history of pneumonia (recurrent)
CPT/HCPCS: 99284

== ENCOUNTER → 2018-03-15 | Outpatient (CLI) | payer SELFPAY ==
[2018-03-15 13:35] LABS: ABSOLUTE EOSINOPHILS # (AUTO) 0.2 10^3/uL (0.0-0.6); ABSOLUTE LYMPHOCYTES (AUTO) 2.3 10^3/uL (0.5-4.7); ABSOLUTE MONOCYTES (AUTO) 0.7 10^3/uL (0.1-1.4); ABSOLUTE NEUT (AUTO) 4.7 10^3/uL (1.7-8.2); BASOPHILS % (AUTO) 0.6 % (0-2); EOSINOPHILS % (AUTO) 2.4 % (0-6); HEMATOCRIT 32.5 % (36.0-47.0); HEMOGLOBIN 10.4 g/dL (12.0-15.5); LYMPHOCYTES % (AUTO) 29.5 % (13-45); MEAN CORPUSCULAR HEMOGLOBIN 22.1 pg (27.0-33.4); MEAN CORPUSCULAR HGB CONC 31.9 g/dL (32.0-36.0); MEAN CORPUSCULAR VOLUME 69 fl (80-97); MONOCYTES % (AUTO) 8.3 % (3-13); PLATELET COUNT 665 10^3/uL (150-450); RED BLOOD COUNT 4.71 10^6/uL (3.72-5.28); RED CELL DISTRIBUTION WIDTH 17.3 % (11.5-14.0); SEGMENTED NEUTROPHILS % (AUTO) 59.2 % (42-78); TOTAL CELLS COUNTED % (AUTO) 100 %; WHITE BLOOD COUNT 7.9 10^3/uL (4.0-10.5)
--- NOTE | 2018-03-15 14:46 | RADIOLOGY REPORT (SQ) ---
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 RADIATION DOSE: NA LIMITATIONS: Patient has made a shallow inspiration FINDINGS: LUNGS AND PLEURA: No opacities, masses or pneumothorax. No pleural effusion. MEDIASTINUM AND HILAR STRUCTURES: No masses or contour abnormalities. HEART AND VASCULAR STRUCTURES: The configuration of the heart mediastinal structures is unchanged. C ardiac silhouette is at the upper limits of normal in size. BONES: No acute findings. HARDWARE: None in the chest. OTHER: No other significant finding. IMPRESSION: No acute changes. Other findings as noted above TECHNICAL DOCUMENTATION: JOB ID: [id number] [employer]- All Rights Reserved Reading location - IP/workstation name: [email or web address]
[2018-03-17 13:45] LABS: T PALLIDUM AB (FTA-ABS) Non Reactive (Non Reacti)
== END ==
LOC: EEVIPCON 12:07 → OD 12:07
PROVIDERS: ATTEND Ophthalmology Retina Specialist
DX: H20.9 Unspecified iridocyclitis (principal); H35.443 Age-related reticular degeneration of retina, bilateral
CPT/HCPCS: 36415; 71046; 82164; 85025; 86038; 86480; 86780

== ENCOUNTER 2018-05-03 08:48 | Emergency (ER) | payer SELFPAY ==
--- NOTE | 2018-05-03 09:22 | EKG REPORT ---
SEVERITY:- ABNORMAL ECG - SINUS RHYTHM NONSPECIFIC T ABNORMALITIES, INFERIOR LEADS : Confirmed by: Jelly Singh 03-May-2018 09:20:41
[2018-05-03] MEDS ORDERED: ASPIRIN 81 MG TABLET, CHEWABLE PO ONE (09:27)
--- NOTE | 2018-05-03 09:30 | ER Document Report ---
ED Medical Screen (RME) - General Chief Complaint: Chest Wall Pain Stated Complaint: BACK/CHEST PAIN Time Seen by Provider: 05/03/18 09:25 Mode of Arrival: Ambulatory Information source: Patient TRAVEL OUTSIDE OF THE [place] IN LAST 30 DAYS: No - HPI Patient complains to provider of: chest pain Onset: Yesterday Onset/Duration: Persistent Quality of pain: Achy, Sharp Severity: Moderate Associated Symptoms: Shortness of breath Exacerbated by: Walking Relieved by: Denies Notes: 05/03/18 09:28 22 yo obese female, h/o HTN, presenting for chest pain x 2 days, worse with exertion, non-reproducible, no cough, FLORES at times, non-smoker, no hormones, no recent immobilization - Related Data Allergies/Adverse Reactions: No Known Allergies Allergy (Verified 05/03/18 08:49) Past Medical History - Social History Chew tobacco use (# tins/day): No Frequency of alcohol use: Occasional Drug Abuse: None - Past Medical History Cardiac Medical History: Reports: Hx Hypertension Pulmonary Medical History: Reports: Hx Pneumonia Renal/ Medical History: Denies: Hx Peritoneal Dialysis - Immunizations Immunizations up to date: No Hx Diphtheria, Pertussis, Tetanus Vaccination: No History of Influenza Vaccine for 07/2017 - 12/2017 Season: Refused Physical Exam - Vital signs Vitals: Temp Pulse Resp BP Pulse Ox 98.2 F 92 16 164/101 H 98 05/03/18 08:52 05/03/18 08:52 05/03/18 08:52 05/03/18 08:52 05/03/18 08:52 Course - Vital Signs Vital signs: Temp Pulse Resp BP Pulse Ox 98.2 F 92 16 164/101 H 98 05/03/18 08:52 05/03/18 08:52 05/03/18 08:52 05/03/18 08:52 05/03/18 08:52 Doctor's Discharge - Discharge Referrals: JEREMI BAHENA MD [Primary Care Provider] - Follow up as needed
[2018-05-03 09:46] LABS: ABSOLUTE EOSINOPHILS # (AUTO) 0.2 10^3/uL (0.0-0.6); ABSOLUTE LYMPHOCYTES (AUTO) 1.5 10^3/uL (0.5-4.7); ABSOLUTE MONOCYTES (AUTO) 0.7 10^3/uL (0.1-1.4); ABSOLUTE NEUT (AUTO) 3.8 10^3/uL (1.7-8.2); BASOPHILS % (AUTO) 0.5 % (0-2); EOSINOPHILS % (AUTO) 3.3 % (0-6); HEMATOCRIT 35.2 % (36.0-47.0); HEMOGLOBIN 11.1 g/dL (12.0-15.5); LYMPHOCYTES % (AUTO) 24.6 % (13-45); MEAN CORPUSCULAR HEMOGLOBIN 22.9 pg (27.0-33.4); MEAN CORPUSCULAR HGB CONC 31.6 g/dL (32.0-36.0); MEAN CORPUSCULAR VOLUME 72 fl (80-97); MONOCYTES % (AUTO) 11.3 % (3-13); PLATELET COUNT 495 10^3/uL (150-450); RED BLOOD COUNT 4.87 10^6/uL (3.72-5.28); RED CELL DISTRIBUTION WIDTH 19.2 % (11.5-14.0); SEGMENTED NEUTROPHILS % (AUTO) 60.3 % (42-78); TOTAL CELLS COUNTED % (AUTO) 100 %; WHITE BLOOD COUNT 6.2 10^3/uL (4.0-10.5)
[2018-05-03 10:05] LABS: ALANINE AMINOTRANSFERASE 43 U/L (9-52); ALBUMIN 3.5 g/dL (3.5-5.0); ALKALINE PHOSPHATASE 56 U/L (38-126); ANION GAP 10 (5-19); ASPARTATE AMINO TRANSFERASE 27 U/L (14-36); BILIRUBIN,DIRECT 0.3 mg/dL (0.0-0.4); BILIRUBIN,TOTAL 0.3 mg/dL (0.2-1.3); BLOOD UREA NITROGEN 5 mg/dL (7-20); CALCIUM 9.4 mg/dL (8.4-10.2); CARBON DIOXIDE 30 mmol/L (22-30); CHLORIDE 104 mmol/L (98-107); CREATINE KINASE 33 U/L (30-135); GLUCOSE 83 mg/dL (75-110); POTASSIUM 4.3 mmol/L (3.6-5.0); SODIUM 144.1 mmol/L (137-145)
[2018-05-03 10:17] LABS: NT PRO BNP 31 pg/mL (<125)
[2018-05-03 10:19] LABS: CREATINE KINASE MB < 0.22 ng/mL (<4.55); TROPONIN I < 0.012 ng/mL
[2018-05-03] MEDS ORDERED: LISINOPRIL 10 MG TABLET PO ONE (10:25)
--- NOTE | 2018-05-03 10:25 | RADIOLOGY REPORT (SQ) ---
EXAM DESCRIPTION: CHEST 2 VIEWS COMPLETED DATE/TIME: 05/03/2018 10:15 am REASON FOR STUDY: cp COMPARISON: 02/07/2018 EXAM PARAMETERS: NUMBER OF VIEWS: two views TECHNIQUE: Digital Frontal and Lateral radiographic views of the chest acquired. RADIATION DOSE: NA LIMITATIONS: Patient body habitus. Shallow inspiration. FINDINGS: LUNGS AND PLEURA: No opacities, masses or pneumothorax. No pleural effusion. Interval fazal aring right lung base. MEDIASTINUM AND HILAR STRUCTURES: No masses or contour abnormalities. HEART AND VASCULAR STRUCTURES: Heart normal size. No evidence for failure. BONES: No acute findings. HARDWARE: None in the chest. OTHER: No other significant finding. IMPRESSION: NO ACUTE RADIOGRAPHIC FINDING IN THE CHEST. TECHNICAL DOCUMENTATION: JOB ID: [id number] [employer]- All Rights Reserved Reading location - IP/workstation name: [email or web address]
[2018-05-03] MEDS ORDERED: LIDOCAINE 5% (700 MG) TRANSDERMAL ADH..PATCH TP ONE (10:26)
--- NOTE | 2018-05-03 10:27 | ER Document Report ---
ED Cardiac - General Chief Complaint: Chest Wall Pain Stated Complaint: BACK/CHEST PAIN Time Seen by Provider: 05/03/18 09:25 Mode of Arrival: Ambulatory Information source: Patient Notes: Patient presents complaining of right-sided chest pain for the past 2 days. Patient states that pain has been worse with exertion. Patient states that she has been doing a lot of heavy lifting at her job and states that the lifting worsens the pain. Patient denies any nausea, vomiting or shortness of breath. Patient denies any recent bed rest, immobilization or surgeries. Patient denies any history of DVT or PE. TRAVEL OUTSIDE OF THE [place] IN LAST 30 DAYS: No - HPI Patient complains to provider of: Chest pain Quality of pain: Stabbing Pain level currently: 5 Cardiac risk factors: denies: Diabetes, Hypertension, Smoker, Hx CHF, Hx [place] Associated symptoms: denies: Abdominal pain, Back pain, Fever/chills, Nausea/ vomiting Exacerbated by: Activity Relieved by: Nothing Similar symptoms previously: No Recently seen / treated by doctor: No - Related Data Allergies/Adverse Reactions: No Known Allergies Allergy (Verified 05/03/18 08:49) Past Medical History - General Information source: Patient - Social History Smoking Status: Never Smoker Chew tobacco use (# tins/day): No Frequency of alcohol use: Occasional Drug Abuse: None Occupation: [employer] Family History: DM, Hypertension, Malignancy Patient has suicidal ideation: No Patient has homicidal ideation: No - Past Medical History Cardiac Medical History: Reports: Hx Hypertension Pulmonary Medical History: Reports: Hx Pneumonia Renal/ Medical History: Denies: Hx Peritoneal Dialysis Surgical Hx: Negative - Immunizations Immunizations up to date: No Hx Diphtheria, Pertussis, Tetanus Vaccination: No Review of Systems - Review of Systems Constitutional: No symptoms reported. denies: Fever, Recent illness EENT: No symptoms reported Cardiovascular: Chest pain. denies: Lightheaded Respiratory: No symptoms reported. denies: Cough, Short of breath Gastrointestinal: No symptoms reported. denies: Vomiting Genitourinary: No symptoms reported Female Genitourinary: No symptoms reported Musculoskeletal: No symptoms reported. denies: Back pain Skin: No symptoms reported Hematologic/Lymphatic: No symptoms reported Neurological/Psychological: No symptoms reported Physical Exam - Vital signs Vitals: Temp Pulse Resp BP Pulse Ox 98.2 F 92 16 164/101 H 98 05/03/18 08:52 05/03/18 08:52 05/03/18 08:52 05/03/18 08:52 05/03/18 08:52 - General General appearance: Appears well, Alert In distress: None - HEENT Head: Normocephalic, Atraumatic Eyes: Normal Conjunctiva: Normal Nasal: Normal Mouth/Lips: Normal Pharynx: Normal Neck: Normal. No: Lymphadenopathy - Respiratory Respiratory status: No respiratory distress Chest status: Tender. No: Pain with cough, Pain with deep breathing Breath sounds: Normal Chest palpation: Normal. No: Tender, Ecchymosis - Cardiovascular Rhythm: Regular. No: Tachycardia Heart sounds: S1 appreciated, S2 appreciated Murmur: No - Abdominal Inspection: Morbidly Obese Distension: No distension Bowel sounds: Normal Tenderness: Nontender Organomegaly: No organomegaly - Back Back: Normal, Nontender. No: CVA tenderness - Extremities General upper extremity: Normal inspection, Normal strength General lower extremity: Normal inspection, Normal strength - Neurological Neuro grossly intact: Yes Cognition: Normal [place] Coma Scale Eye Opening: Spontaneous [place] Coma Scale Verbal: Oriented [place] Coma Scale Motor: Obeys Commands [place] Coma Scale Total: 15 - Psychological Associated symptoms: Normal affect, Normal mood - Skin Skin Temperature: Warm Skin Moisture: Dry Skin Color: Normal Course - Re-evaluation Re-evalutation: 05/03/18 12:[address] Villanueva regarding patient diagnostic evaluation. Recommends obtaining a d-dimer. Does not advise repeating cardiac enzyme testing at this time. 05/03/18 14:37 The patient has atypical chest pain as the patient's chest pain is not suggestive of pulmonary embolus, cardiac ischemia, aortic dissection, or other serious etiology. Given the extremely low risk of these diagnoses for the test in evaluation for these possibilities does not appear to be indicated at this time. Patient has been instructed to return if the symptoms worsen or change in any way. - Vital Signs Vital signs: Temp Pulse Resp BP Pulse Ox 97.6 F 92 29 H 145/91 H 100 05/03/18 15:23 05/03/18 08:52 05/03/18 14:32 05/03/18 14:32 05/03/18 14:32 - Laboratory Result Diagrams: 05/03/18 09:32 05/03/18 09:32 Laboratory results interpreted by me: 05/03/18 05/03/18 09:32 09:32 Hgb 11.1 L Hct 35.2 L MCV 72 L MCH 22.9 L MCHC 31.6 L RDW 19.2 H Plt Count 495 H BUN 5 L 05/03/18 14:37 Labs- Entire Visit 05/03/18 05/03/18 05/03/18 09:32 09:32 09:32 WBC 6.2 RBC 4.87 Hgb 11.1 L Hct 35.2 L MCV 72 L MCH 22.9 L MCHC 31.6 L RDW 19.2 H Plt Count 495 H Seg Neutrophils % 60.3 Lymphocytes % 24.6 Monocytes % 11.3 Eosinophils % 3.3 Basophils % 0.5 Absolute Neutrophils 3.8 Absolute Lymphocytes 1.5 Absolute Monocytes 0.7 Absolute Eosinophils 0.2 Absolute Basophils 0.0 D-Dimer Sodium 144.1 Potassium 4.3 Chloride 104 Carbon Dioxide 30 Anion Gap 10 BUN 5 L Creatinine 0.65 Est GFR ( Amer) > 60 Est GFR (Non-Af Amer) > 60 Glucose 83 Calcium 9.4 Total Bilirubin 0.3 Direct Bilirubin 0.3 Neonat Total Bilirubin Not Reportable Neonat Direct Bilirubin Not Reportable Neonat Indirect Bili Not Reportable AST 27 ALT 43 Alkaline Phosphatase 56 Creatine Kinase 33 CK-MB (CK-2) Troponin I NT-Pro-B Natriuret Pep Total Protein 7.0 Albumin 3.5 Serum HCG, Qual NEGATIVE 05/03/18 05/03/18 09:32 09:32 WBC RBC Hgb Hct MCV MCH MCHC RDW Plt Count Seg Neutrophils % Lymphocytes % Monocytes % Eosinophils % Basophils % Absolute Neutrophils Absolute Lymphocytes Absolute Monocytes Absolute Eosinophils Absolute Basophils D-Dimer 0.43 Sodium Potassium Chloride Carbon Dioxide Anion Gap BUN Creatinine Est GFR ( Amer) Est GFR (Non-Af Amer) Glucose Calcium Total Bilirubin Direct Bilirubin Neonat Total Bilirubin Neonat Direct Bilirubin Neonat Indirect Bili AST ALT Alkaline Phosphatase Creatine Kinase CK-MB (CK-2) < 0.22 Troponin I < 0.012 NT-Pro-B Natriuret Pep 31 Total Protein Albumin Serum HCG, Qual - Diagnostic Test Radiology reviewed: Reports reviewed Discharge - Discharge Clinical Impression: Chest pain Qualifiers: Chest pain type: unspecified Qualified Code(s): R07.9 - Chest pain, unspecified Condition: Stable Disposition: HOME, SELF-CARE Instructions: Chest Wall Pain ([facility]), Muscle Relaxers ([facility]) Additional Instructions: Return immediately for any new or worsening symptoms Followup with your primary care provider, call tomorrow to make a followup appointment Follow-up with paradichlorobenzene tender for recheck Prescriptions: Cyclobenzaprine HCl [Flexeril 10 Mg Tablet] 10 mg PO TID #15 tablet Hydrocodone/Acetaminophen [[place] 5-325 Tablet] 1 each PO Q6 PRN #8 tablet PRN Reason: Forms: Restricted Release, Return to Work Referrals: JEREMI BAHENA MD [CONSULTING STAFF] - Follow up as needed JUDY CALLAHAN MD [ACTIVE STAFF] - Follow up as needed
--- NOTE | 2018-05-03 14:13 | RADIOLOGY REPORT (SQ) ---
EXAM DESCRIPTION: CTA CHEST COMPLETED DATE/TIME: 05/03/2018 2:00 pm REASON FOR STUDY: r side chest pain COMPARISON: 01/26/2018. TECHNIQUE: CT scan of the chest performed using helical scanning technique with dynamic intravenous contrast injection. Images reviewed with lung, soft tissue and bone windows. Reconstructed coronal and sagittal MPR images reviewed. Additional 3 dimensional post-processing performed to develop Maximal Intensity Projection images (SD P). All images stored on PACS. All CT scanners at this facility use dose modulation, iterative reconstruction, and/or weight based d osing when appropriate to reduce radiation dose to as low as reasonably achievable (ALARA). [facility]: Dose Right [facility]: CareDose [facility]: Dose Right [facility]: Teradose 4D [facility]: eOriginal CONTRAST TYPE AND DOSE: contrast/concentration: Isovue 370.00 mg/ml; Total Contrast Delivered: 79.0 ml; Total Saline Delivered: 81.2 ml Contrast bolus adequate for pulmonary arteries and aorta. RENAL FUNCTION: BUN 5 creatinine 0.65. RADIATION DOSE: CT Rad equipment meets quality standard of care and radiation dose reduction techniq ues were employed. CTDIvol: 15.4 - 25.4 mGy. DLP: 510 mGy-cm. . LIMITATIONS: None. FINDINGS: LUNGS AND PLEURA: No masses, infiltrates, or pneumothorax. No pleural effusions or pleura l calcifications. AORTA AND GREAT VESSELS: No aneurysm. No dissection. HEART: No pericardial effusion. No significant coronary artery calcifications. PULMONARY ARTERIES: No emboli visualized in the main pulmonary arteries or the segmental branches. HILAR AND MEDIASTINAL STRUCTURES: No identified masses or abnormal nodes. HARDWARE: None in the chest. UPPER ABDOMEN: No significant findings. Limited exam. THYROID AND OTHER SOFT TISSUES: No masses. No adenopathy. BONES: No acute or significant finding. 3D MIPS: Confirm above findings. OTHER: No other significant finding. IMPRESSION: NORMAL CTA OF THE CHEST. NO PULMONARY EMBOLI. COMMENT: Quality ID # [id number]: Final reports with documentation of one or more dose reduction techniques (e.g., Automated exposure control, adjustment of the mA and/or kV according to patient size, use of iterative reconstruction technique) TECHNICAL DOCUMENTATION: JOB ID: [id number] [employer]- All Rights Reserved Reading location - IP/workstation name: [email or web address]
[2018-05-03 15:11] VITALS: BP 145/91
== END 2018-05-03 15:23 | disposition home or self-care (01) ==
LOC: ER 08:48
DX: R07.9 Chest pain, unspecified (principal); I10 Essential (primary) hypertension
CPT/HCPCS: 36415; 71046; 71275; 80053; 82550; 82553; 83880; 84484; 84703; 85025; 85379; 93005; 93010; 99285

== ENCOUNTER 2018-06-08 08:19 | Emergency (ER) | payer OTHER ==
[2018-06-08] MEDS ORDERED: LIDOCAINE 1% INJ-PF (10 MG/ML) 30 ML SDV INJ ONE (09:45)
[2018-06-08] MEDS ORDERED: HYDROCODONE/ACETAMINOPHEN 5-325 MG (6 TAB/ER DISP) PO PRN (09:54)
[2018-06-08] MEDS ORDERED: LIDOCAINE 1% INJ-PF (10 MG/ML) 30 ML SDV ONE (09:55)
--- NOTE | 2018-06-08 09:55 | ER Document Report ---
HPI - HPI Pain Level: 4 Notes: Patient is a 22-year-old female with a history of hypertension who presents to the ED complaining an abscess to the left upper buttock 3 days. Patient states that she has had 2 previous abscesses that required I&D in the past. She has not had any history of MRSA. She has not noticed any purulent discharge or red streaks. Denies any drug allergies. Pain does not radiate. No other concerns or complaints. Denies IV drug use. Denies any headache, fever, URI, sore throat, chest pain, palpitations, syncope, cough, shortness of breath, wheeze, dyspnea, abdominal pain, nausea/vomiting/diarrhea, urinary retention, dysuria, hematuria, or rash. - ROS Systems Reviewed and Negative: Yes All other systems reviewed and negative - CONSTITUTIONAL Constitutional: DENIES: Fever - REPRODUCTIVE Reproductive: DENIES: : Past Medical History - Social History Smoking Status: Never Smoker Chew tobacco use (# tins/day): No Frequency of alcohol use: Occasional Drug Abuse: None Family History: DM, Hypertension, Malignancy Patient has suicidal ideation: No Patient has homicidal ideation: No - Past Medical History Cardiac Medical History: Reports: Hx Hypertension Pulmonary Medical History: Reports: Hx Pneumonia Renal/ Medical History: Denies: Hx Peritoneal Dialysis - Immunizations Immunizations up to date: No Hx Diphtheria, Pertussis, Tetanus Vaccination: No Vertical Provider Document - CONSTITUTIONAL Agree With Documented VS: Yes Notes: PHYSICAL EXAMINATION: GENERAL: Well-appearing, well-nourished and in no acute distress. LUNGS: Breath sounds clear to auscultation bilaterally and equal. No wheezes rales or rhonchi. HEART: Regular rate and rhythm without murmurs, rubs, gallops. NEUROLOGICAL: Normal speech, normal gait. PSYCH: Normal mood, normal affect. SKIN: there is a 4x4cm mildly erythemic, indurated area to the left upper buttock- not involving coccyx or rectal area. No streaks or discharge noted. - INFECTION CONTROL TRAVEL OUTSIDE OF THE [place] IN LAST 30 DAYS: No Course - Re-evaluation Re-evalutation: 06/08/18 11:25 Patient is an afebrile, well-hydrated, 22-year-old female who presents to the ED with an abscess requiring I&D to the left buttock. Vitals are acceptable without any significant tachycardia, tachypnea, or hypoxia. PE is otherwise unremarkable. I&D was performed successfully without any complications and wound culture was obtained. Packing was placed. No other labs or imaging warranted at this time based on H&P. Patient is nontoxic-appearing and is tolerating p.o. without difficulties. I will send her home with a prescription for keflex/bactrim. Conservative measures for symptoms. Wound dressing was placed and wound instructions reviewed. Recheck with your PCM in 2-3 days and/ or the ED if necessary. Return to the ED with any worsening/concerning symptoms otherwise as reviewed in discharge. Patient is in agreement. - Vital Signs Vital signs: Temp Pulse Resp BP Pulse Ox 99.0 F 111 H 20 152/110 H 100 06/08/18 08:26 06/08/18 08:26 06/08/18 08:26 06/08/18 08:26 06/08/18 08:26 Procedures - Incision and Drainage Left Buttock Time completed: 11:10 - Patient tolerated procedure well without any complications. Wound culture was obtained. The abscess pocket was fairly large on the inside and a good amount of packing was placed. Type: Simple Anesthetic type: 1% Lidocaine mL's of anesthetic: 15 Blade size: 11 I&D procedure: Iodoform packing placed, Sterile dressing applied, Other - chlorhexadine/saline Incision Method: Incision made by scalpel Amount/type of drainage: Moderate purulent Discharge - Discharge Clinical Impression: Abscess Condition: Stable Disposition: HOME, SELF-CARE Instructions: Abscess ([facility]), Cephalexin ([facility]), Post Incision and Drainage, Trimethoprim-Sulfa ([facility]) Additional Instructions: Do not shower or bathe for 24 hours. After 24 hours she may shower but no submersion of the wound under water. Keep the original dressing on the wound for 24 hours unless the drainage soaks through. Change the dressing daily thereafter and use a small amount of triple antibiotic ointment over the open wound. Return to the ED and/or your PCM in 2-3 days for recheck and continue direction for wound packing. Monitor for any signs of worsening pain or redness , streaks, and/or fever. Return to the ED if noticing any of the above symptoms or as needed. Take medications as directed. Prescriptions: Cephalexin Monohydrate [Keflex 500 mg Capsule] 500 mg PO TID #30 capsule Sulfamethoxazole/Trimethoprim [Bactrim Ds Tablet] 1 each PO BID #20 tablet Forms: Elevated Blood Pressure Referrals: RONA ROCHA MD [Primary Care Provider] - Follow up in 3-5 days
[2018-06-08] MEDS ORDERED: HYDROCODONE/ACETAMINOPHEN 5-325 MG (6 TAB/ER DISP) ONE (10:03)
[2018-06-08 11:15] VITALS: BP 149/92
== END 2018-06-08 11:40 | disposition home or self-care (01) ==
LOC: ER 08:19
DX: L02.31 Cutaneous abscess of buttock (principal); I10 Essential (primary) hypertension
CPT/HCPCS: 87070; 87077; 87186; 87205; 99283

== ENCOUNTER 2018-06-08 22:51 | Emergency (ER) | payer OTHER ==
--- NOTE | 2018-06-09 01:08 | ER Document Report ---
ED Skin Rash/Insect Bite/Abscs - General Chief Complaint: Abscess Stated Complaint: POST OP COMPLICATION Time Seen by Provider: 06/09/18 00:16 Mode of Arrival: Ambulatory Information source: Patient Notes: 22-year-old female presented to ED for complaint of increased pain at her I&D site on her left buttocks. She said that the I&D was done during the morning and she was discharged home with prescriptions and a [place] dispense pack. She states she is having more pain than she thought she would have. Patient is alert and oriented, respirations regular and unlabored, was speaking in full sentences, and walking with a even steady gait. Patient is afebrile sitting in the chair in no acute distress. TRAVEL OUTSIDE OF THE [place] IN LAST 30 DAYS: No - HPI Patient complains to provider of: Tender/swollen area Quality of pain: Sharp, Throbbing Severity: Severe Pain Level: 5 Skin Character: Abscess - I&D yesterday, Swelling Quality of rash: Painful Identify cause: No Exacerbated by: Sitting, Movement, Walking Relieved by: Denies Similar symptoms previously: Yes Recently seen / treated by doctor: Yes - Related Data Allergies/Adverse Reactions: No Known Allergies Allergy (Verified 06/08/18 08:25) Past Medical History - General Information source: Patient - Social History Smoking Status: Never Smoker Cigarette use (# per day): No Chew tobacco use (# tins/day): No Smoking Education Provided: No Frequency of alcohol use: Social Drug Abuse: None Occupation: [employer] Lives with: Parents Family History: DM, Hypertension, Malignancy Patient has suicidal ideation: No Patient has homicidal ideation: No - Past Medical History Cardiac Medical History: Reports: Hx Hypertension Pulmonary Medical History: Reports: Hx Pneumonia EENT Medical History: Reports: None Neurological Medical History: Reports: None Endocrine Medical History: Reports: None Renal/ Medical History: Reports: None Malignancy Medical History: Reports: None GI Medical History: Reports: None Musculoskeletal Medical History: Reports None Skin Medical History: Reports Other - Abscess Psychiatric Medical History: Reports: None Traumatic Medical History: Reports: None Infectious Medical History: Reports: None Surgical Hx: Negative Past Surgical History: Reports: None - Immunizations Immunizations up to date: No Hx Diphtheria, Pertussis, Tetanus Vaccination: No Review of Systems - Review of Systems Constitutional: No symptoms reported EENT: No symptoms reported Cardiovascular: No symptoms reported Respiratory: No symptoms reported Gastrointestinal: No symptoms reported Genitourinary: No symptoms reported Female Genitourinary: No symptoms reported Musculoskeletal: No symptoms reported Skin: Other - Abscess draining that was I&D yesterday Hematologic/Lymphatic: No symptoms reported Neurological/Psychological: No symptoms reported -: Yes All other systems reviewed and negative Physical Exam - Vital signs Vitals: Temp Pulse Resp BP Pulse Ox 99.2 F 109 H 16 149/95 H 99 06/08/18 22:52 06/08/18 22:52 06/08/18 22:52 06/08/18 22:52 06/08/18 22:52 Interpretation: Normal - General General appearance: Appears well, Alert - HEENT Head: Normocephalic, Atraumatic Eyes: Normal Pupils: PERRL - Respiratory Respiratory status: No respiratory distress Chest status: Nontender Breath sounds: Normal Chest palpation: Normal - Cardiovascular Rhythm: Regular Heart sounds: Normal auscultation Murmur: No - Abdominal Inspection: Normal Distension: No distension Bowel sounds: Normal Tenderness: Nontender Organomegaly: No organomegaly - Back Back: Normal, Nontender - Extremities General upper extremity: Normal inspection, Nontender, Normal color, Normal ROM , Normal temperature General lower extremity: Normal inspection, Nontender, Normal color, Normal ROM , Normal temperature, Normal weight bearing. No: Simón's sign - Neurological Neuro grossly intact: Yes Cognition: Normal Orientation: AAOx4 [place] Coma Scale Eye Opening: Spontaneous [place] Coma Scale Verbal: Oriented [place] Coma Scale Motor: Obeys Commands [place] Coma Scale Total: 15 Speech: Normal Motor strength normal: LUE, RUE, LLE, RLE Sensory: Normal - Psychological Associated symptoms: Normal affect, Normal mood - Skin Skin Temperature: Warm Skin Moisture: Dry Skin Color: Normal Skin irregularity: Abscess - Draining abscess that has been packed yesterday. There is no signs or symptoms of any inflammation or infection. Abscess appears as it should be expected. No redness no hot to the area. Packing is in place. Location of irregularity: Extremities - Left buttocks Character of irregularity: negative: Erythematous Irregularity with: Tenderness. negative: Inflammation Course - Re-evaluation Re-evalutation: 06/09/18 01:12 Dressing was changed. Patient was offered a pillow for her pain. Patient was offered Tylenol or Motrin for pain and she stated she had her [place]. Patient will be discharged home with the doughnut pillow. - Vital Signs Vital signs: Temp Pulse Resp BP Pulse Ox 98.7 F 81 17 155/82 H 98 06/09/18 01:46 06/09/18 01:46 06/09/18 01:46 06/09/18 01:46 06/09/18 01:46 Discharge - Discharge Clinical Impression: Abscess Condition: Stable Disposition: HOME, SELF-CARE Additional Instructions: You were seen today for an abscess. Abscess has been I&D and is looking in good condition at this time. Continue your antibiotics as prescribed Use Tylenol and Motrin for the pain in your abscess. Save your narcotics for when the pain is severe. Follow-up in 48 hours as instructed or sooner if you develop any fever. I have given you a pillow to sit on to decrease the pain at the site of your abscess. FOLLOW-UP CARE: If you have been referred to a physician for follow-up care, call the physician s office for an appointment as you were instructed or within the next two days. If you experience worsening or a significant change in your symptoms, notify the physician immediately or return to the Emergency Department at any time for re-evaluation. Forms: Elevated Blood Pressure, Return to Work Referrals: RONA ROCHA MD [Primary Care Provider] - Follow up as needed
[2018-06-09 01:47] VITALS: BP 155/82
== END 2018-06-09 01:47 | disposition home or self-care (01) ==
LOC: ER 22:51
DX: L02.31 Cutaneous abscess of buttock (principal); Z98.890 Other specified postprocedural states; I10 Essential (primary) hypertension
CPT/HCPCS: 99282

== ENCOUNTER 2018-06-09 23:53 | Emergency (ER) | payer OTHER ==
[2018-06-10] MEDS ORDERED: IBUPROFEN 600 MG TABLET PO ONE (02:31)
[2018-06-10] MEDS ORDERED: ACETAMINOPHEN 325 MG TABLET PO ONE (02:31)
[2018-06-10] MEDS ORDERED: MORPHINE SULFATE IR 15 MG TABLET PO ONE (02:31)
--- NOTE | 2018-06-10 02:34 | ER Document Report ---
ED General - General Chief Complaint: Pain Stated Complaint: ABSCESS Time Seen by Provider: 06/10/18 01:08 Notes: Patient is a 22-year-old female with a past medical history of morbid obesity, recurrent abscesses who presents for recheck of a wound on her right buttock after incision and drainage was performed yesterday. The patient states that her pain is improved relative to when it was drained yesterday but that has not completely resolved. She has a dull, throbbing, aching pain to the area worsened by applying pressure to the area. She has been using a donut to try to improve her discomfort. She states that this does feel somewhat worsened and she has had incision and drainages in the past. She denies any fever or constitutional symptoms. She has not yet followed up with her primary doctor regarding today's concerns. TRAVEL OUTSIDE OF THE [place] IN LAST 30 DAYS: No - Related Data Allergies/Adverse Reactions: No Known Allergies Allergy (Verified 06/09/18 23:55) Past Medical History - General Information source: Patient - Social History Smoking Status: Never Smoker Chew tobacco use (# tins/day): No Frequency of alcohol use: None Drug Abuse: None Lives with: Family Family History: DM, Hypertension, Malignancy Patient has suicidal ideation: No Patient has homicidal ideation: No - Past Medical History Cardiac Medical History: Reports: Hx Hypertension Pulmonary Medical History: Reports: Hx Pneumonia Renal/ Medical History: Denies: Hx Peritoneal Dialysis - Immunizations Immunizations up to date: No Hx Diphtheria, Pertussis, Tetanus Vaccination: No Review of Systems - Review of Systems Notes: Constitutional: Negative for fever. HENT: Negative for sore throat. Eyes: Negative for visual changes. Cardiovascular: Negative for chest pain. Respiratory: Negative for shortness of breath. Gastrointestinal: Negative for abdominal pain, vomiting or diarrhea. Genitourinary: Negative for dysuria. Musculoskeletal: Negative for back pain. Skin: Positive for rash. Neurological: Negative for headaches, weakness or numbness. 10 point ROS negative except as marked above and in HPI. Physical Exam - Vital signs Vitals: Temp Pulse Resp BP Pulse Ox 98.3 F 115 H 18 180/109 H 100 06/10/18 00:01 06/10/18 00:01 06/10/18 00:01 06/10/18 00:01 06/10/18 00:01 Interpretation: Normal - Tachycardia documented in triage not present at the time of my assessment Notes: PHYSICAL EXAMINATION: GENERAL: Well-appearing, well-nourished and in no acute distress. HEAD: Atraumatic, normocephalic. EYES: sclera anicteric, conjunctiva are normal. ENT: Moist mucous membranes. NECK: Normal range of motion LUNGS: Normal work of breathing HEART: 2+ radial pulses bilaterally, regular rhythm EXTREMITIES: no pitting or edema. No cyanosis. NEUROLOGICAL: No focal neurological deficits. Moves all extremities spontaneously and on command. PSYCH: Normal mood, normal affect. SKIN: Warm, Dry, normal turgor, there is a 1 cm on the superior central right buttock. Packing removed. No purulent drainage expressed on gentle compression of the area. Approximately 2 x 1 cm area surrounding erythema consistent with cellulitis. No induration. Bedside ultrasound without any appreciable fluid collection Course - Re-evaluation Re-evalutation: 06/10/18 02:31 Patient presents for recheck of an abscess with associated cellulitis that was drained yesterday on her right buttock. The packing was removed. Wound is healing well without any evidence of recollection. There is a surrounding area of erythema consistent with a cellulitis documented yesterday. A bedside ultrasound does not show any recurrent fluid collection. The patient states that the [place] that she was provided yesterday have not provided any relief. She did give me 2 tablets to discard. These were wasted and witnessed by nursing staff being discarded. Please see nursing documentation for verification that these medications were discarded appropriately. The patient has been given a small amount of oral morphine to try instead as the area is quite extensive and looks to be quite painful. She has not had any fever or constitutional symptoms to suggest sepsis. The area appears to be healing appropriately. Have emphasized signs and symptoms that would suggest failure of treatment. At this time will discharge with return precautions and follow- up recommendations. Verbal discharge instructions given a the bedside and opportunity for questions given. Medication warnings reviewed. Patient is in agreement with this plan and has verbalized understanding of return precautions and the need for primary care follow-up in the next 24-72 hours. - Vital Signs Vital signs: Temp Pulse Resp BP Pulse Ox 98.3 F 100 18 146/113 H 99 06/10/18 02:51 06/10/18 02:51 06/10/18 02:51 06/10/18 02:51 06/10/18 02:51 Discharge - Discharge Clinical Impression: Encounter for wound re-check, Cellulitis of right buttock Condition: Good Disposition: HOME, SELF-CARE Additional Instructions: Please clean this area with soap and water twice daily and apply a topical antibiotic. Dress the area after each cleaning. Please return if you develop fever, vomiting, the pain at the site worsens, you notice spreading redness from the area, or you have any other symptoms that are concerning to you. Continue take antibiotics as prescribed. For your pain: Take ibuprofen 600 mg and acetaminophen 1000 mg every 6 hours together as needed for pain. If this does not control your pain you may take 15 mg of oral morphine every 4 hours as needed. Please be very careful about using the oral morphine and only use this for severe pain. Prescriptions: Morphine Sulfate [Morphine Ir 15 mg Tablet] 15 mg PO Q6HP PRN #6 tablet PRN Reason: Referrals: RONA ROCHA MD [Primary Care Provider] - Follow up tomorrow
[2018-06-10 02:52] VITALS: BP 146/113
== END 2018-06-10 02:53 | disposition home or self-care (01) ==
LOC: ER 23:53
DX: L02.31 Cutaneous abscess of buttock (principal); L03.317 Cellulitis of buttock; Z98.890 Other specified postprocedural states; I10 Essential (primary) hypertension
CPT/HCPCS: 99283

== ENCOUNTER 2018-07-25 19:04 | Emergency (ER) | payer OTHER ==
[2018-07-25 19:16] VITALS: BP 150/84
== END 2018-07-25 20:25 | disposition left against medical advice (07) ==
LOC: ER 19:04
DX: Z53.21 Procedure and treatment not carried out due to patient leaving prior to being seen by health care provider (principal)

== ENCOUNTER 2018-08-30 08:58 | Emergency (ER) | payer MEDICAID, OTHER ==
[2018-08-30 09:09] VITALS: BP 137/82
[2018-08-30] MEDS ORDERED: NORMAL SALINE 1000 ML 1,000 ML IV ONE (09:37)
[2018-08-30] MEDS ORDERED: ONDANSETRON HCL INJ/PF 4 MG/2 ML SDV IV ONE (09:37)
--- NOTE | 2018-08-30 09:38 | ER Document Report ---
ED Medical Screen (RME) - General Chief Complaint: Vomiting/Diarrhea Stated Complaint: VOMITING Time Seen by Provider: 08/30/18 09:31 Notes: 22 years old female with a history of hypertension and asthma presents today with 2-day history of nausea vomiting many times and had loose bowel movement for many x2. Feeling generally weak fatigued and tired. General body aches and pain. Denies any runny nose sore throat cough. Denies any abdominal pain dysuria frequency. She has been taking 20 mg of prednisone since last December every day prescribed by her primary care provider. And also on Symbicort. TRAVEL OUTSIDE OF THE [place] IN LAST 30 DAYS: No - Related Data Allergies/Adverse Reactions: No Known Allergies Allergy (Verified 08/30/18 08:58) Past Medical History - Social History Chew tobacco use (# tins/day): No Frequency of alcohol use: Occasional Drug Abuse: None - Past Medical History Cardiac Medical History: Reports: Hx Hypertension Pulmonary Medical History: Reports: Hx Asthma, Hx Pneumonia Renal/ Medical History: Denies: Hx Peritoneal Dialysis - Immunizations Immunizations up to date: No Hx Diphtheria, Pertussis, Tetanus Vaccination: No History of Influenza Vaccine for 07/2017 - 12/2017 Season: Refused Physical Exam - Vital signs Vitals: Temp Pulse Resp BP Pulse Ox 98.7 F 86 20 137/82 H 99 08/30/18 09:08 08/30/18 09:08 08/30/18 09:08 08/30/18 09:08 08/30/18 09:08 Course - Vital Signs Vital signs: Temp Pulse Resp BP Pulse Ox 98.7 F 86 20 137/82 H 99 08/30/18 09:08 08/30/18 09:08 08/30/18 09:08 08/30/18 09:08 08/30/18 09:08 Doctor's Discharge - Discharge Referrals: RONA ROCHA MD [Primary Care Provider] - Follow up as needed
[2018-08-30 10:05] LABS: ABSOLUTE EOSINOPHILS # (AUTO) 0.3 10^3/uL (0.0-0.6); ABSOLUTE LYMPHOCYTES (AUTO) 1.9 10^3/uL (0.5-4.7); ABSOLUTE MONOCYTES (AUTO) 0.5 10^3/uL (0.1-1.4); ABSOLUTE NEUT (AUTO) 5.3 10^3/uL (1.7-8.2); BASOPHILS % (AUTO) 0.6 % (0-2); EOSINOPHILS % (AUTO) 3.7 % (0-6); HEMATOCRIT 34.8 % (36.0-47.0); HEMOGLOBIN 11.1 g/dL (12.0-15.5); LYMPHOCYTES % (AUTO) 23.3 % (13-45); MEAN CORPUSCULAR HEMOGLOBIN 22.8 pg (27.0-33.4); MEAN CORPUSCULAR HGB CONC 31.9 g/dL (32.0-36.0); MEAN CORPUSCULAR VOLUME 72 fl (80-97); MONOCYTES % (AUTO) 6.3 % (3-13); PLATELET COUNT 557 10^3/uL (150-450); RED BLOOD COUNT 4.87 10^6/uL (3.72-5.28); RED CELL DISTRIBUTION WIDTH 16.1 % (11.5-14.0); SEGMENTED NEUTROPHILS % (AUTO) 66.1 % (42-78); TOTAL CELLS COUNTED % (AUTO) 100 %
[2018-08-30 10:12] LABS: AMORPHOUS SEDIMENT,URINE TRACE /HPF; APPEARANCE,URINE CLOUDY; BILIRUBIN,URINE NEGATIVE (NEGATIVE); COLOR,URINE YELLOW; GLUCOSE, URINE NEGATIVE (NEGATIVE); KETONES,URINE NEGATIVE (NEGATIVE); LEUKOCYTE ESTERASE,URINE SMALL (NEGATIVE); NITRITE,URINE NEGATIVE (NEGATIVE); PROTEIN,URINE NEGATIVE (NEGATIVE); URINE SPECIFIC GRAVITY 1.021; UROBILINOGEN,URINE NEGATIVE mg/dL (<2.0)
[2018-08-30 10:17] LABS: ALANINE AMINOTRANSFERASE 21 U/L (9-52); ALBUMIN 3.9 g/dL (3.5-5.0); ALKALINE PHOSPHATASE 52 U/L (38-126); ANION GAP 8 (5-19); ASPARTATE AMINO TRANSFERASE 16 U/L (14-36); BILIRUBIN,DIRECT 0.3 mg/dL (0.0-0.4); BILIRUBIN,TOTAL 0.4 mg/dL (0.2-1.3); BLOOD UREA NITROGEN 10 mg/dL (7-20); CALCIUM 9.6 mg/dL (8.4-10.2); CARBON DIOXIDE 30 mmol/L (22-30); CHLORIDE 103 mmol/L (98-107); GLUCOSE 78 mg/dL (75-110); POTASSIUM 4.6 mmol/L (3.6-5.0); SODIUM 141.4 mmol/L (137-145); TOTAL PROTEIN 7.3 g/dL (6.3-8.2)
--- NOTE | 2018-08-30 11:49 | ER Document Report ---
ED GI/ - General Chief Complaint: Vomiting/Diarrhea Stated Complaint: VOMITING Time Seen by Provider: 08/30/18 09:31 Notes: Patient is a 22-year-old female presenting to the emergency department for vomiting and diarrhea since last night. Patient states she has vomited 4 times and had diarrhea 5 times is denying blood in either. Patient also admits to a subjective fever. Patient states she has minor epigastric to left upper quadrant pain, states is more of a nausea feeling than a pain. Patient is denying dysuria or vaginal discharge. Last menstrual period was August 23. Patient is denying any URI symptoms. Past medical history: Hypertension, asthma Medications: Lisinopril, prednisone Allergies: None Surgical history: None Patient denies cigarette smoking, illicit drug use, admits to occasional EtOH use. TRAVEL OUTSIDE OF THE [place] IN LAST 30 DAYS: No - Related Data Allergies/Adverse Reactions: No Known Allergies Allergy (Verified 08/30/18 08:58) Past Medical History - General Information source: Patient - Social History Smoking Status: Never Smoker Chew tobacco use (# tins/day): No Frequency of alcohol use: Occasional Drug Abuse: None Family History: DM, Hypertension, Malignancy Patient has suicidal ideation: No Patient has homicidal ideation: No - Past Medical History Cardiac Medical History: Reports: Hx Hypertension Pulmonary Medical History: Reports: Hx Asthma, Hx Pneumonia Renal/ Medical History: Denies: Hx Peritoneal Dialysis - Immunizations Immunizations up to date: No Hx Diphtheria, Pertussis, Tetanus Vaccination: No Review of Systems - Review of Systems Constitutional: See HPI EENT: See HPI Cardiovascular: See HPI Respiratory: See HPI Gastrointestinal: See HPI Genitourinary: See HPI Female Genitourinary: See HPI Musculoskeletal: No symptoms reported Skin: No symptoms reported Hematologic/Lymphatic: No symptoms reported Neurological/Psychological: No symptoms reported Physical Exam - Vital signs Vitals: Temp Pulse Resp BP Pulse Ox 98.7 F 86 20 137/82 H 99 08/30/18 09:08 08/30/18 09:08 08/30/18 09:08 08/30/18 09:08 08/30/18 09:08 - Notes Notes: GENERAL: Morbidly obese alert, interacts well. No acute distress. HEAD: Normocephalic, atraumatic. EYES: Pupils equal, round, and reactive to light. Extraocular movements intact. ENT: Oral mucosa moist, tongue midline. NECK: Full range of motion. Supple. Trachea midline. LUNGS: Clear to auscultation bilaterally, no wheezes, rales, or rhonchi. No respiratory distress. HEART: Regular rate and rhythm. No murmur ABDOMEN: Obese soft, non-tender. Non-distended. Bowel sounds present in all 4 quadrants. Patient states nausea feeling, denies pain upon palpation epigastric or left upper quadrant. EXTREMITIES: Moves all 4 extremities spontaneously. No edema, normal radial and dorsalis pedis pulses bilaterally. No cyanosis. BACK: no cervical, thoracic, lumbar midline tenderness. No saddle anesthesia, normal distal neurovascular exam. No CVA tenderness bilaterally NEUROLOGICAL: Alert and oriented x3. Normal speech. cranial nerves II through XII grossly intact PSYCH: Normal affect, normal mood. SKIN: Warm, dry, normal turgor. No rashes or lesions noted. Course - Re-evaluation Re-evalutation: 08/30/18 11:47 After treatments in the emergency room with IV fluids and Zofran patient states she no longer feels nauseated and has not had a bowel movement since arrival to the emergency room. No leukocytosis, no electrolyte abnormalities, no signs of urinary tract infection. Discussed antiemetic discharge for home use. Return precautions discussed. - Vital Signs Vital signs: Temp Pulse Resp BP Pulse Ox 98.7 F 86 20 137/82 H 99 08/30/18 09:08 08/30/18 09:08 08/30/18 09:08 08/30/18 09:08 08/30/18 09:08 - Laboratory Result Diagrams: 08/30/18 09:41 08/30/18 09:41 Laboratory results interpreted by me: 08/30/18 08/30/18 09:41 09:52 Hgb 11.1 L Hct 34.8 L MCV 72 L MCH 22.8 L MCHC 31.9 L RDW 16.1 H Plt Count 557 H Ur Leukocyte Esterase SMALL H Discharge - Discharge Clinical Impression: Nausea & vomiting Qualifiers: Vomiting type: unspecified Vomiting Intractability: non-intractable Qualified Code(s): R11.2 - Nausea with vomiting, unspecified Diarrhea Qualifiers: Diarrhea type: unspecified type Qualified Code(s): R19.7 - Diarrhea, unspecified Condition: Stable Disposition: HOME, SELF-CARE Instructions: Antinausea Medication ([facility]), Diarrhea, Nonspecific ([facility]), Prescribed Antidiarrhea Medications ([facility]), Intravenous (IV) Fluids ([facility]), Vomiting ([facility]) Additional Instructions: As we discussed you have been seen and treated in the emergency room for vomiting and diarrhea. Your labs revealed no signs of infection or electrolyte abnormalities. Please take medications as prescribed and stay well-hydrated. Please return to the emergency room for any other concerning symptoms. Prescriptions: Loperamide HCl [Imodium 2 mg Capsule] 2 mg PO PRN PRN #21 cap PRN Reason: Diarrhea Ondansetron [Zofran Odt 4 mg Tablet] 1 - 2 tab PO Q4H PRN #15 tab.rapdis PRN Reason: For Nausea/Vomiting Referrals: RONA ROCHA MD [Primary Care Provider] - Follow up as needed
== END 2018-08-30 12:00 | disposition home or self-care (01) ==
LOC: ER 08:58
DX: R11.2 Nausea with vomiting, unspecified (principal); R19.7 Diarrhea, unspecified; E66.01 Morbid (severe) obesity due to excess calories; I10 Essential (primary) hypertension; J45.909 Unspecified asthma, uncomplicated
CPT/HCPCS: 99284; 96361; 96374; 36415; 83690; 85025; 81025; 80053; 81001; J2405; J7030

== ENCOUNTER 2019-07-07 04:05 | Emergency (ER) | payer OTHER ==
[2019-07-07 04:12] VITALS: BP 147/78
== END 2019-07-07 04:35 | disposition left against medical advice (07) ==
LOC: ER 04:05
DX: Z53.21 Procedure and treatment not carried out due to patient leaving prior to being seen by health care provider (principal)

== ENCOUNTER 2019-07-10 08:36 | Emergency (ER) | payer SELFPAY ==
[2019-07-10 08:49] VITALS: BP 150/69
[2019-07-10] MEDS ORDERED: TETRACAINE HCL 0.5% OPH SOLN 4 ML OD ONE (09:10)
[2019-07-10] MEDS ORDERED: POLYMYXIN B SULFATE/TMP OPH SOLN (10 ML/ER DISP) OD PRN (09:22)
--- NOTE | 2019-07-10 09:37 | ER Document Report ---
HPI - HPI Patient complains to provider of: Eye irritation right Time Seen by Provider: 07/10/19 09:06 Pain Level: 4 Context: Healthy 23-year-old female presents the emergency department with irritation of her right eye x1 week. She was seen a year ago and diagnosed with allergic conjunctivitis and given steroid drops and systemic steroids. She states that she has photophobia but denies tearing and complains of some blurred vision. Denies any fevers or entrapment, denies headache. No other complaints - CONSTITUTIONAL Constitutional: DENIES: Fever, Chills - EENT EENT: REPORTS: Eye problems - NEURO Neurology: REPORTS: Vision blurred - right eye x 1wk. DENIES: Headache, Weakness, Dizzinesss / Vertigo - CARDIOVASCULAR Cardiovascular: DENIES: Chest pain - RESPIRATORY Respiratory: DENIES: Trouble Breathing, Coughing - GASTROINTESTINAL Gastrointestinal: DENIES: Abdominal Pain, Black / Bloody Stools - URINARY Urinary: DENIES: Dysuria, Urgency, Frequency - REPRODUCTIVE LMP: 06/13/19 Reproductive: DENIES: : - MUSCULOSKELETAL Musculoskeletal: DENIES: Extremity pain Past Medical History - Social History Smoking Status: Never Smoker Chew tobacco use (# tins/day): No Frequency of alcohol use: Social Drug Abuse: None Family History: DM, Hypertension, Malignancy Patient has suicidal ideation: No Patient has homicidal ideation: No - Past Medical History Cardiac Medical History: Reports: Hx Hypertension Pulmonary Medical History: Reports: Hx Asthma, Hx Pneumonia Renal/ Medical History: Denies: Hx Peritoneal Dialysis - Immunizations Immunizations up to date: No Hx Diphtheria, Pertussis, Tetanus Vaccination: No Vertical Provider Document - CONSTITUTIONAL Notes: PHYSICAL EXAMINATION: Reviewed vital signs and charting by RN GENERAL: Alert, interacts well. No acute distress. HEAD: Normocephalic, atraumatic. EYES: Pupils equal and round. Extraocular movements intact. Scleral injection right eye ENT: Oral mucosa moist, tongue midline. NECK: Full range of motion. Trachea midline. EXTREMITIES: Moves all 4 extremities spontaneously. No edema, No cyanosis. PSYCH: Normal affect, normal mood. SKIN: Warm, dry, normal turgor. No rashes or lesions noted. - INFECTION CONTROL TRAVEL OUTSIDE OF THE [place] IN LAST 30 DAYS: No Course - Re-evaluation Re-evalutation: 07/10/19 09:37 Well-appearing in no acute distress, fluoroscein stain applied to right eye after tetracaine drops and there was uptake at the 7 o'clock position consistent with a corneal abrasion/irritation. Patient was given Polytrim drops with strict instructions and referral to ophthalmology as needed. She is stable for discharge. - Vital Signs Vital signs: Temp Pulse Resp BP Pulse Ox 98.1 F 89 16 150/69 H 100 07/10/19 08:39 07/10/19 08:39 07/10/19 08:39 07/10/19 08:39 07/10/19 08:39 Discharge - Discharge Clinical Impression: Corneal irritation of right eye Condition: Good Disposition: HOME, SELF-CARE Additional Instructions: You have a corneal abrasion. This should improve in the next several days. You should apply the eye drops to the affected eye every 2-3 hours no more than 8 times per day while you are awake. Follow-up with your eye doctor at your earliest ability. Return if you have decreased vision, worsening pain, increased drainage from the eye, you notice redness or puffiness around the eye, you develop a fever greater than 101F, or you have any other symptoms that are concerning to you. Referrals: RONA ROCHA MD [Primary Care Provider] - Follow up as needed DIEGO VENCES MD [ACTIVE STAFF] - Follow up as needed
== END 2019-07-10 09:46 | disposition home or self-care (01) ==
LOC: ER 08:36
DX: R29.818 Other symptoms and signs involving the nervous system (principal); H53.149 Visual discomfort, unspecified; H53.8 Other visual disturbances; J45.909 Unspecified asthma, uncomplicated
CPT/HCPCS: 99283; J3490 ×2

== ENCOUNTER 2019-07-12 07:32 | Emergency (ER) | payer SELFPAY ==
[2019-07-12 07:38] VITALS: BP 158/87
--- NOTE | 2019-07-12 08:06 | ER Document Report ---
HPI - HPI Time Seen by Provider: 07/12/19 08:04 Notes: 23-year-old female presents to the ED for complaints of right scleral injection that has been bothering her for the last week. Patient has been seen in the emergency room for similar complaint, prescribed antibiotic drops, patient states that the straps are not enough she does requesting steroid eyedrops. Patient reports she has scleral injection from being on a antibiotic approximately a year ago, it created vision issues in which she has blurred vision. She does have an school psychologist in [facility] however the school psychologist will not prescribe her steroid eyedrops without office visit. Reports blurred vision patient has been using the abx eyedrops without any relief. Patient denies any . Denies fevers, chills, chest pain,palpitations, shortness of breath, dyspnea, nausea, vomiting, diarrhea, abdominal pain, hematuria, double vision, loss of vision, speech changes, LH, dizziness, syncope, headaches, wheezing, ST, URI, neck pain, weakness, bowel or bladder dysfunction, saddle anesthesia, numbness or tingling in bilateral upper or lower extremities equally, muscle paralysis, weakness in bilateral upper or lower extremities equally or rash. - REPRODUCTIVE Reproductive: DENIES: : Past Medical History - General Information source: Patient - Social History Smoking Status: Unknown if Ever Smoked Family History: DM, Hypertension, Malignancy - Past Medical History Cardiac Medical History: Reports: Hx Hypertension Pulmonary Medical History: Reports: Hx Asthma, Hx Pneumonia Renal/ Medical History: Denies: Hx Peritoneal Dialysis - Immunizations Immunizations up to date: No Hx Diphtheria, Pertussis, Tetanus Vaccination: No Vertical Provider Document - CONSTITUTIONAL Agree With Documented VS: Yes Exam Limitations: No Limitations General Appearance: WD/WN Notes: PHYSICAL EXAMINATION: GENERAL: Well-appearing, well-nourished and in no acute distress. HEAD: Atraumatic, normocephalic. EYES: Pupils equal round and reactive to light, extraocular movements intact, conjunctiva are normal. flurostain for corneal abrasion, foreign body, dendrites, or ulcer. Normal fundi and optic discs. Corneas grossly clear. No ny stagmus bilaterally. No ptosis, photophobia. ENT: Nares patent, oropharynx clear without exudates. Moist mucous membranes. NECK: Normal range of motion, supple without lymphadenopathy LUNGS: Breath sounds clear to auscultation bilaterally and equal. No wheezes rales or rhonchi. HEART: Regular rate and rhythm without murmurs ABDOMEN: Soft, nontender, nondistended abdomen. No guarding, no rebound. No masses appreciated. Female : deferred Musculoskeletal: Normal range of motion, no pitting or edema. No cyanosis. NEUROLOGICAL: Cranial nerves grossly intact. Normal speech, normal gait. Normal sensory, motor exams PSYCH: Normal mood, normal affect. SKIN: Warm, Dry, normal turgor, no rashes or lesions noted. - INFECTION CONTROL TRAVEL OUTSIDE OF THE [place] IN LAST 30 DAYS: No Course - Re-evaluation Re-evalutation: 07/12/19 08:[address] Jesus at 0845 regarding patient's complaint of right scleral injection while being on abx eye drops patient's respiratory prednisone drops. Patient does have a school psychologist in [place] and will not be seeing school psychologist for the next couple of days, patient is visiting [place]. He stated that he will see patient in office this morning to send her over. Patient was agreeable with this plan of care and verbalized understanding of this plan of care. Patient does have someone driving to doctor's office. After performing a Medical Screening Examination, I estimate there is LOW risk for a RETAINED CORNEAL or LID FOREIGN BODY, DEEP SPACE INFECTION (e.g., ORBITAL CELLULITIS OR ABSCESS), ACUTE GLAUCOMA, PENETRATING GLOBE INJURY, RETINAL DETACHMENT, or MENINGITIS thus I consider the discharge disposition reasonable. I have reevaluated this patient multiple times and no significant life threatening changes are noted. Also, there is no evidence or peritonitis, sepsis, or toxicity. The patient and I have discussed the diagnosis and risks, and we agree with discharging home with outpatient follow-up with the understanding that symptoms and presentations can change. We also discussed returning to the Emergency Department immediately if new or worsening symptoms occur. We have discussed the symptoms which are most concerning (e.g., changing or worsening pain, vision changes, neck stiffness or fever) that necessitate immediate return. - Vital Signs Vital signs: Temp Pulse Resp BP Pulse Ox 98.2 F 79 16 158/87 H 99 07/12/19 07:35 07/12/19 07:35 07/12/19 07:35 07/12/19 07:35 07/12/19 07:35 Discharge - Discharge Clinical Impression: Corneal irritation of right eye Condition: Stable Disposition: HOME, SELF-CARE Additional Instructions: Continue using antibiotic eyedrops as directed. Please follow-up with school psychologist Dr. Jesus see at [facility], he is expecting your call to make an appt today. Return immediately for any new or worsening symptoms. Follow up with primary care provider, call tomorrow to make followup appointment. Forms: Return to Work Referrals: RONA ROCHA MD [Primary Care Provider] - Follow up as needed NIDHI JESUS DO [ACTIVE STAFF] - 07/12/19
== END 2019-07-12 09:03 | disposition home or self-care (01) ==
LOC: ER 07:32
DX: H57.9 Unspecified disorder of eye and adnexa (principal); H53.8 Other visual disturbances; I10 Essential (primary) hypertension; J45.909 Unspecified asthma, uncomplicated
CPT/HCPCS: 99283